=== PATIENT | female | born 1985 | race Hispanic/Latino ===

== ENCOUNTER 2023-10-21 19:03 | Emergency (ER) | payer SELFPAY ==
--- OUTSIDE RECORDS SUMMARY | 2023-10-21 19:11 | XMS REPORT | Continuity of Care Document ---
Author Name Unknown Address [address] [facility]. [address] [place] [address] [facility] thconnect Address [address] [facility] [address] [place] [address] Care Team Providers Care Apartment Property Manager Name Role Phone PCP, PATIENT DOES NOT HAVE A Primary Care Physic fang Unavailable Nurse, Robles Enriquezrach Rgv Cprit Obgyn Attending Clini rachelle Unavailable Iesha Pitts Attending Clinician + IESHA ROSALES Attending Clinician Unavail able RUBA DUBOSE Attending Clinician Unavailable Osiris Wilkins DO Attending Clinician [phone] Ruba Dubose MD Attending Clinician [phone] Doctor Unassigned, Ross Attending Clinician U Ashely Tobar CNM Attending Clinician +1- ASHELY OBANDO Attending Clinician Unavailliliam Amin, [facility] Attending Clinician Unava PERCY Viveros Attending Clinician UnavailPercy Mcpherson MD Attending Clinician [phone] Alena Buckley MD Attending Clinician [phone] DAVID DRISCOLL Attending Clinician Unavailable Charly, Wolfgangadriana Attending Clinician UnavailSuly Germain MD Attending Clinician +00 SULY SANCHEZ Attending Clinician Unavailable SONJA SALINAS Attending Clinician SONJA Christopher Attending Clinician Mae Martinez MD, Lilli Cuevas Attending Clinician + LILLI MARTINEZ Attending Clinician Peng ailable 1, [facility] Attending Clinician Unavailab donte Lalit Muñoz DO Attending Clinician [phone] Teri Felipe Attending Clinician UnavailJEN Trevino Attending Clinician Unavaildharmesh Gasca MD, Jen Norris Attending Clinician + [phone] Provider, Ang-Rmch[facility] Temp Attending Clinician Odilia karthik Lab, Ang-Rmchp Attending Clinician Unavailable Eddie Perera MD Attending Clinician [phone] EDDIE PERERA Attending Clinician Unavailable Deysi Lopez Attending Clinician + [phone] DEYSI GARCIA Attending Clinician Unavailab donte 1, [facility] Attending Clinician Unavailab donte Wilkins RN, Xiomara Darden Attending Clinician UnavailJorge Castro Attending Clinician [phone] JORGE REYEZ Attending Clinician Unavailable Chitra Brothers Attending Clinician [phone] CHITRA PETERS Attending Clinician UnavailDoyle Gates DO Attending Clinician [phone] Juan Francisco Sanz MD Attending Clinician [phone] RUBA DUBOSE Admitting Clinician Unavailable PERCY NATHAN Admitting Clinician UnavailPercy Mcpherson MD Admitting Clinician + [phone] SONJA SALINAS Admitting Clinician JEN Graza Admitting Clinician UnavailJORGE Johansen Admitting Clinician Unavailable CHITRA PETERS Admitting Clinician Abhishek briones Payers Payer Name Policy Type Policy Number Effective Date Expirati on Date Source [facility] [id number] 2023 00:00:00 [facility] [id number] 2023 00:00:00 2024 00:00:00 Problems Condition Name Condition Details Condition Category Status Onset Date Resolution Date Last Treatment Date Treating Clinician Comments Source Need for HPV vaccinatio n Need for HPV vaccinatio n Disease Active 07-06 00:00: 00 [facility] (spontaneo us vaginal delivery) (spontaneo us vaginal delivery) Disease Active 09-13 00:00: 00 [facility] Single live Single live Disease Active 09-13 00:00: 00 [facility] Elevated blood pressure reading without diagnosis of hypertensi on Elevated blood pressure reading without diagnosis of hypertensi on Disease Active 09-11 00:00: 00 [facility] Gestationa l hypertensi on Gestationa l hypertensi on Disease Active 09-11 00:00: 00 [facility] 38 weeks gestation of 38 weeks gestation of Disease Active 09-11 00:00: 00 [facility] Elevated blood pressure affecting in third trimester, antepartum Elevated blood pressure affecting in third trimester, antepartum Disease Active 09-11 00:00: 00 [facility] Decreased movements in third trimester Decreased movements in third trimester Disease Active 09-11 00:00: 00 [facility] Morbid obesity with BMI of 40.0-44.9, adult Morbid obesity with BMI of 40.0-44.9, adult Disease Active 09-11 00:00: 00 [facility] Status post tubal ligation Status post tubal ligation Disease Active 08-13 00:00: 00 [facility] UTI in UTI in Disease Active 07-04 00:00: 00 Overview: Formattin g of this note might be different from the original. Pending chepe [facility] Pain of round ligament during Pain of round ligament during Disease Active 4-19 00:00: 00 [facility] Anemia of mother in , antepartum Anemia of mother in , antepartum Disease Active 2023-0 4-06 00:00: 00 [facility] Heartburn during Heartburn during Disease Active 4-05 00:00: 00 [facility] Multiparit y Multiparit y Disease Active 2-08 00:00: 00 [facility] AMA (advanced maternal age) multigravi da 35+ AMA (advanced maternal age) multigravi da 35+ Disease Active 2021-03 2-13 00:00: 00 [facility] headache in third trimester headache in third trimester Disease Active 2021-03 2-13 00:00: 00 [facility] Nausea and vomiting in Nausea and vomiting in Disease Active 2021-03 2 00:00: 00 [facility] Supervisio n of high-risk of elderly multigravi da Supervisio n of high-risk of elderly multigravi da Disease Active 2021-03 2 00:00: 00 [facility] Other general counseling and advice for contracept tesfaye management Other general counseling and advice for contracept tesfyae management Disease Active 3- 00:00: 00 [facility] Maternal varicella, non-immune Maternal varicella, non-immune Disease Active 11-03 00:00: 00 Overview: Formattin g of this note might be different from the original. Address in [facility] Unspecifie d hemorrhage in early , antepartum Unspecifie d hemorrhage in early , antepartum Disease Active 10-30 00:00: 00 [facility] Obesity (BMI 30-39.9) Obesity (BMI 30-39.9) Disease Active 10-30 00:00: 00 [facility] Supervisio n of high risk , antepartum , first trimester Supervisio n of high risk , antepartum , first trimester Disease Active 10-30 00:00: 00 [facility] Multiparit y Multiparit y Disease Active 10-30 00:00: 00 [facility] Missed period Missed period Disease Active 10-30 00:00: 00 [facility] Unspecifie d hemorrhage in early , antepartum Unspecifie d hemorrhage in early , antepartum Disease Active 10-30 00:00: 00 [facility] Obesity, unspecifie d Obesity, unspecifie d Disease Active 10-30 00:00: 00 [facility] Obesity affecting Obesity affecting Disease Active 04-11 00:00: 00 [facility] Anemia, Anemia, Disease Active 12-02 00:00: 00 Overview: Formattin g of this note might be different from the original. ICD10 Diagnosis Term Food Service Driver Utility [facility] Allergies, Adverse Reactions, Alerts Allergy Name Allergy Type Status Severity Reaction(s) Onset Date Inactive Date Treating Clinician Comments Source NO KNOWN ALLERGIE S Drug Class Active [facility] Social History Social Habit Start Date Stop Date Quantity Comments Source ASSERTION 2021-12-27 00:00:00 [facility] Gender identity [facility] Sexual orientation [facility] History of tobacco use Passive smoker [facility] Alcohol intake 2022-10-26 00:00:00 2022-10-26 00:00:00 Ex-drinker (finding) [facility] Exposure to SARS-CoV-2 (event) 2022-08-22 00:00:00 2022-09-01 09:32:00 Not sure [facility] Tobacco use and exposure 2022-01-28 00:00:00 2022-01-28 00:00:00 Smokeless tobacco non-user [facility] History of Social function 2022-01-28 00:00:00 2022-01-28 00:00:00 [facility] Alcohol Comment 2013-08-23 00:00:00 2013-08-23 00:00:00 ocassional [facility] Sex Assigned At 1985 00:00:00 1985 00:00:00 [facility] Smoking Status Start Date Stop Date Source Never smoked tobacco [facility] Medications Ordered Medication Name Filled Medication Name Start Date Stop Date Current Medication? Ordering Clinician Indication Dosage Frequency Signature (SIG) Comments Components Source ketorolac (TORADOL) injection 30 mg 04-09 05:00: 00 04-09 04:07 :00 No 30mg 30 mg, Slow IV Push, ONCE, 1 dose, On Thu04/08/23 at 2300, [facility] methylPREDN ISolone 4 mg tablets 04-08 00:00: 00 Yes [id number] Take by mouth SEE-INSTRU CTIONS. follow package directions [facility] cephALEXin (KEFLEX) 500 mg capsule 10-03 00:00: 00 10-14 04:59 :00 No [id number] 500mg Take 1 capsule by mouth 4 (four) times daily for 10 days. [facility] HYDROcodone -acetaminop hen 5-325 mg tablet 09-15 00:00: 00 09-23 04:59 :00 No [id number] 1{tbl} Take 1 tablet by mouth every 6 (six) hours as needed for Pain (scale 7-10) for up to 7 days. Indication s: acute pain [facility] phenylephri ne-cocoa butter (PREPARATIO N H) 0.25-88.44 % suppository 1 Suppository 09-14 01:00: 00 Yes 1{suppo sitory} 1 Suppositor y, Rectal, BID, First dose on 09/13/22 at 2000, Until Discontinu ed, Routine [facility] varicella virus vaccine live (VARIVAX) injection and diluent vial 09-13 16:17: 19 Yes 1{each} 0.5 mL (1 Each), Subcutaneo us, ONCE-PRIOR TO DISCHARGE, 1 dose, Starting on 09/13/22 at 1117, Until Discontinu ed, Routine, Give vaccine prior to discharge [facility] vitamin w/FA tablet 09-13 00:00: 00 Yes [id number] 1{tbl} Take 1 tablet by mouth in the morning. [facility] vitamin w/FA tablet 09-13 00:00: 00 Yes [id number] 1{tbl} Take 1 tablet by mouth in the morning. [facility] docusate 100 mg capsule 09-13 00:00: 00 10-24 00:00 :00 No [id number] 200mg Take 2 capsules by mouth once daily as needed for Constipati on. [facility] ferrous sulfate 325 mg (65 mg iron) tablet 09-13 00:00: 00 10-24 00:00 :00 No [id number] 325mg Take 1 tablet by mouth in the morning and 1 tablet in the evening. [facility] ibuprofen 600 mg tablet 09-13 00:00: 00 10-24 00:00 :00 No [id number] 600mg Take 1 tablet by mouth every 6 (six) hours as needed (Pain). Take with food or milk. [facility] naloxone (NARCAN) injection 0.2 mg 09-12 19:36: 00 Yes .2mg 0.2 mg, Intramuscu lar, Q3HPRN, 3 doses, Starting on Thu09/12/22 at 1436, Until Discontinu ed, Routine, Itching [facility] diphenhydrA MINE (BENADRYL) tablet 25 mg 09-12 19:36: 00 Yes 25mg 25 mg, Oral, Q4HPRN, Starting on Thu09/12/22 at 1436, Until Discontinu ed, Routine, Itching [facility] ketorolac (TORADOL) injection 30 mg 09-12 19:36: 00 09-17 04:59 :00 No 30mg 30 mg, Slow IV Push, Q6HPRN, 4 doses, Starting on Thu09/12/22 at 1436, Until Thu09/16/22 at 2359, Routine, Pain (scale 1-3) [facility] HYDROcodone -acetaminop hen (NORCO 5) 5-325 mg tablet 2 tablet 09-12 19:02: 32 Yes 2{tbl} 2 tablet, Oral, Q6HPRN, Starting on Thu09/12/22 at 1402, Until Discontinu ed, Routine, Pain (scale 7-10) [facility] HYDROcodone -acetaminop hen (NORCO 5) 5-325 mg tablet 1 tablet 09-12 19:02: 30 Yes 1{tbl} 1 tablet, Oral, Q6HPRN, Starting on Thu09/12/22 at 1402, Until Discontinu ed, Routine, Pain (scale 4-6) [facility] naloxone (NARCAN) injection 0.4 mg 09-12 17:53: 27 09-14 23:14 :19 No .4mg 0.4 mg, Slow IV Push, PRN - SEE INSTRUCTIO NS, Starting on Thu09/12/22 at 1253, Until Thu09/14/22 at 1814, Routine, Analgesia [facility] rho(D) immune globulin (RHOGAM) syringe 300 mcg 09-12 10:23: 39 Yes 300ug 300 mcg, Intramuscu lar, ONCE, For 1 dose, Conditiona l, Routine [facility] human papillomav vac,9-kierra(P F) (GARDASIL-9 ) syringe 0.5 mL 09-12 10:23: 36 Yes .5mL 0.5 mL, Intramuscu lar, ONCE-PRIOR TO DISCHARGE, 1 dose, Starting on Thu09/12/22 at 0523, Until Discontinu ed, Routine, Give vaccine prior to discharge [facility] HYDROcodone -acetaminop hen (NORCO 5) 5-325 mg tablet 1 tablet 09-12 10:23: 36 Yes 1{tbl} 1 tablet, Oral, Q6HPRN, Starting on Thu09/12/22 at 0523, Until Discontinu ed, Routine, Pain (scale 7-10) [facility] ibuprofen (IBU) tablet 600 mg 09-12 10:23: 36 Yes 600mg 600 mg, Oral, Q6HPRN, Starting on Thu09/12/22 at 0523, Until Discontinu ed, Routine, Pain (scale 4-6) [facility] acetaminoph en (TYLENOL) tablet 650 mg 09-12 10:23: 36 Yes 650mg 650 mg, Oral, Q6HPRN, Starting on Thu09/12/22 at 0523, Until Discontinu ed, Routine, Pain (scale 1-3) [facility] ondansetron (ZOFRAN (PF)) injection 4 mg 09-12 10:23: 36 Yes 4mg 4 mg, Slow IV Push, Q8HPRN, Starting on Thu09/12/22 at 0523, Until Discontinu ed, Routine, Nausea and Vomiting (N/V) [facility] simethicone (GAS RELIEF (SIMETHICON E)) chewable tablet 160 mg 09-12 10:23: 36 Yes 160mg 160 mg, Oral, PC+HSPRN, Starting on Thu09/12/22 at 522, Until Discontinu ed, Routine, Gas [facility] docusate (COLACE) capsule 200 mg 09-12 10:23: 36 Yes 200mg 200 mg, Oral, QDAILYPRN, Starting on Thu09/12/22 at 0523, Until Discontinu ed, Routine, Constipati on [facility] magnesium hydroxide (MILK OF MAGNESIA) 400 mg/5 mL suspension 30 mL 09-12 10:23: 36 Yes 30mL 30 mL, Oral, QDAILYPRN, Starting on Thu09/12/22 at 05, Until Discontinu ed, Routine, Constipati on [facility] benzocaine- menthol (DERMOPLAST ) 20-0.5 % topical spray 09-12 10:23: 35 Yes Topical, PRN, Starting on Thu09/12/22 at 0523, Until Discontinu ed, Routine, Perineum discomfort [facility] ibuprofen (IBU) tablet 600 mg 09-12 07:14: 02 Yes 600mg 600 mg, Oral, Q6HPRN, Starting on Thu09/12/22 at 0214, Until Discontinu ed, Routine, Pain (scale 1-3) [facility] oxytocin (PITOCIN) 30 units in NS 500 mL IV infusion 09-12 07:13: 56 Yes 600mL/h 600 mL/hr, IV Infusion, PRN, For post delivery uterine atony., Starting on Thu09/12/[address] at 600 mL/hr for 1 hr then 150 mL/hr for 1 hr.
[facility] oxytocin (PITOCIN) 30 units in NS 500 mL IV infusion 09-12 07:13: 56 Yes 300mL/h 300 mL/hr, IV Infusion, SEE-INSTRU CTIONS, Starting on Thu09/12/[address] at 300 mL/hr for 1 hr then 150 mL/hr for 1 hr. For post delivery uterotonic .
[facility] acetaminoph en (TYLENOL) tablet 1,000 mg 09-12 04:00: 00 09-12 03:24 :00 No 1000mg 1,000 mg, Oral, ONCE, 1 dose, On Thu09/11/22 at 2300, Routine [facility] acetaminoph en (TYLENOL) tablet 1,000 mg 09-11 19:45: 00 09-11 18:48 :00 No 1000mg 1,000 mg, Oral, ONCE NOW, 1 dose, On Thu09/11/22 at 1445, Routine [facility] proCHLORper azine (COMPAZINE) tablet 10 mg 09-11 19:30: 00 09-11 18:48 :00 No 10mg 10 mg, Oral, ONCE, 1 dose, On Thu09/11/22 at 1430, Routine [facility] oxytocin (PITOCIN) 30 units in NS 500 mL IV infusion 09-11 19:18: 22 Yes 2mU/min at 2-40 mL/hr, IV Infusion, TITRATE, Starting on Thu09/11/22 at 1418, Until Discontinu ed, [facility] lidocaine 1% (XYLOCAINE) 10 mg/mL (1 %) injection 30 mL 09-11 18:16: 37 Yes 30mL 30 mL, Infiltrati on, PRN - SEE INSTRUCTIO NS, Starting on Thu09/11/22 at 1316, Until Discontinu ed, Routine, Local anesthesia , For laceration repair only as a local anesthetic as indicated. [facility] lidocaine 1% (PF) (XYLOCAINE) injection 0.3 mL 09-11 18:16: 37 Yes .3mL 0.3 mL, Infiltrati on, PRN - SEE INSTRUCTIO NS, Starting on Yara 09/11/22 at 1316, Until Discontinu ed, Routine, Local anesthesia , For IV line placement only as a local anesthetic . [facility] lactated ringers IV infusion 500 mL 09-11 18:16: 37 Yes 500mL at 999 mL/hr, 500 mL, IV Infusion, PRN - SEE INSTRUCTIO NS, Starting on Yara 09/11/22 at 1316, Until Discontinu ed, Routine [facility] D5W-LR IV infusion 1,000 mL 09-11 18:16: 37 Yes 1000mL at 1-125 mL/hr, IV Infusion, TITRATE, Starting on Yara 09/11/22 at 1316, Until Discontinu ed, Routine [facility] sodium citrate-cit reggie acid (BICITRA) 500-334 mg/5 mL solution 30 mL 09-11 18:16: 37 09-12 18:16 :00 No 30mL 30 mL, Oral, PRE-PROCED URE ONCE, 1 dose, Starting on Yara 09/11/22 at 1316, Until Thu09/12/22 at 1316, Routine, Surgery/Pr ocedure [facility] ampicillin 500 mg capsule 07-04 00:00: 00 07-15 04:59 :00 No [id number] 500mg Take 1 capsule by mouth 4 (four) times daily for 10 days. [facility] ferrous sulfate 325 mg (65 mg iron) tablet 06-19 00:00: 00 09-13 00:00 :00 No [id number] 325mg Take 1 tablet by mouth in the morning and 1 tablet in the evening. [facility] ascorbic acid, vitamin C, 500 mg tablet 06-19 00:00: 00 09-13 00:00 :00 No [id number] 500mg Take 1 tablet by mouth in the morning and 1 tablet at noon and 1 tablet in the evening. [facility] acetaminoph en (TYLENOL) tablet 650 mg 04-08 05:15: 00 04-08 05:55 :00 No 650mg 650 mg, Oral, ONCE, 1 dose, On Thu04/07/22 at 2315, [facility] iopamidol (ISOVUE 370-500 mL) injection 80 mL 04-08 04:30: 00 04-08 04:30 :00 No [id number] 80mL 80 mL, Intravenou s, ONCE, 1 dose, On Thu04/07/22 at 2230, Routine [facility] lidocaine 5 % (700 mg/patch) patch 04-07 00:00: 00 09-13 00:00 :00 No [id number] Apply one patch to most painful area up to 12 hours a day as needed for pain. PHARMACIST : dispense one box [facility] No known medications 03-25 08:28: 24 No No known medication s [facility] metroNIDAZO LE 500 mg tablet 03-25 00:00: 00 04-02 05:59 :00 No [id number] 500mg Take 1 tablet by mouth in the morning and 1 tablet in the evening. Do all this for 7 days. [facility] No known medications 2021-03 09:36: 01 No No known medication s [facility] No known medications 2021-03 09:00: 02 No No known medication s [facility] No known medications 2021-03 10:37: 13 No No known medication s [facility] cetirizine HCl (ZYRTEC ORAL) 2021-03 10:37: 03 01-28 00:00 :00 No Take by mouth. [facility] methylpredn isolone sod succ (SOLU-MEDRO L) injection 125 mg 08-06 23:30: 00 08-06 22:29 :00 No 125mg 125 mg, IV Piggyback, ONCE, 1 dose, 08/06/20 at 1830, STAT [facility] ipratropium -albuteroL (DUONEB) 0.5 mg-3 mg(2.5 mg base)/3 mL nebulizer solution 3 mL 08-06 23:30: 00 08-06 22:30 :00 No 3mL 3 mL, Inhalation , ONCE, 1 dose, Thu08/06/20 at 1830, Routine [facility] predniSONE 20 mg tablet 08-06 00:00: 00 08-06 00:00 :00 No [id number] 40mg Take 2 tablets by mouth every morning for 5 days. [facility] benzonatate (TESSALON PERLES) capsule 100 mg 08-03 23:45: 00 08-03 23:03 :00 No 100mg 100 mg, Oral, ONCE, 1 dose, Thu08/03/20 at 1845, Routine [facility] dexamethaso ne (DECADRON PHOSPHATE) injection 10 mg 08-03 23:45: 00 08-03 23:05 :00 No 10mg 10 mg, Oral, ONCE, 1 dose, Thu08/03/20 at 1845, Routine [facility] albuterol (VENTOLIN) inhaler 2 Puff 08-03 23:45: 00 08-03 23:09 :00 No 2{puff} 2 Puff, Inhalation , ONCE, 1 dose, Thu08/03/20 at 1845, [facility]
Is this order for a patient with suspected or confirmed COVID-19 infection? Yes [facility] benzonatate 100 mg capsule 08-03 00:00: 00 01-28 00:00 :00 No [id number] 100mg Take 1 capsule by mouth 3 (three) times daily as needed for Cough. [facility] cetirizine HCl (ZYRTEC ORAL) 05-14 14:07: 06 Yes Take by mouth. [facility] cetirizine HCl (ZYRTEC ORAL) 05-14 08:07: 06 Yes Take by mouth. [facility] KCL (KLOR-CON M20) tablet 40 mEq 11-05 17:30: 00 11-05 16:29 :00 No 40meq 40 mEq, Oral, ONCE, 1 dose, 11/05/18 at 1230, [facility] naproxen sodium 550 mg tablet 11-05 00:00: 00 01-28 00:00 :00 No [id number] 550mg Take 1 tablet by mouth 2 (two) times daily with meals. [facility] multivitami n ( VITAMIN) tablet 10-30 00:00: 00 01-28 00:00 :00 No [id number] 1{tbl} Take 1 tablet by mouth daily. [facility] Immunizations Ordered Immunization Name Filled Immunization Name Date Status Comments Source HPV9 2022-11-28 00:00:00 Completed [facility] HPV9 2022-10-24 00:00:00 Completed [facility] HPV9 2022-10-24 00:00:00 Completed [facility] HPV9 2022-10-24 00:00:00 Completed [facility] HPV9 2022-10-24 00:00:00 Completed [facility] TDAP 2022-07-02 00:00:00 Completed [facility] TDAP 2022-07-02 00:00:00 Completed [facility] TDAP 2022-07-02 00:00:00 Completed [facility] TDAP 2022-07-02 00:00:00 Completed [facility] TDAP 2022-07-02 00:00:00 Completed [facility] TDAP 2022-07-02 00:00:00 Completed [facility] TDAP 2022-07-02 00:00:00 Completed [facility] TDAP 2022-07-02 00:00:00 Completed [facility] TDAP 2022-07-02 00:00:00 Completed [facility] TDAP 2022-07-02 00:00:00 Completed [facility] TDAP 2022-07-02 00:00:00 Completed [facility] TDAP 2022-07-02 00:00:00 Completed [facility] TDAP 2022-07-02 00:00:00 Completed [facility] TDAP 2022-07-02 00:00:00 Completed [facility] TDAP 2022-07-02 00:00:00 Completed [facility] TDAP 2022-07-02 00:00:00 Completed [facility] TDAP 2022-07-02 00:00:00 Completed [facility] TDAP 2022-07-02 00:00:00 Completed [facility] TDAP 2022-07-02 00:00:00 Completed [facility] TDAP 2022-07-02 00:00:00 Completed [facility] TDAP 2022-07-02 00:00:00 Completed [facility] TDAP 2022-07-02 00:00:00 Completed [facility] TDAP 2022-07-02 00:00:00 Completed [facility] TDAP 2022-07-02 00:00:00 Completed [facility] TDAP 2022-07-02 00:00:00 Completed [facility] Influenza Virus Vaccine Quad IM, Preserv and ABX Free 6 MO-64 YRS 2022-01-28 00:00:00 Completed [facility] Influenza Virus Vaccine Quad IM, Preserv and ABX Free 6 MO-64 YRS 2022-01-28 00:00:00 Completed [facility] Influenza Virus Vaccine Quad IM, Preserv and ABX Free 6 MO-64 YRS 2022-01-28 00:00:00 Completed [facility] Influenza Virus Vaccine Quad IM, Preserv and ABX Free 6 MO-64 YRS 2022-01-28 00:00:00 Completed [facility] Influenza Virus Vaccine Quad IM, Preserv and ABX Free 6 MO-64 YRS 2022-01-28 00:00:00 Completed [facility] Influenza Virus Vaccine Quad IM, Preserv and ABX Free 6 MO-64 YRS 2022-01-28 00:00:00 Completed [facility] Influenza Virus Vaccine Quad IM, Preserv and ABX Free 6 MO-64 YRS 2022-01-28 00:00:00 Completed [facility] Influenza Virus Vaccine Quad IM, Preserv and ABX Free 6 MO-64 YRS 2022-01-28 00:00:00 Completed [facility] Influenza Virus Vaccine Quad IM, Preserv and ABX Free 6 MO-64 YRS 2022-01-28 00:00:00 Completed [facility] Influenza Virus Vaccine Quad IM, Preserv and ABX Free 6 MO-64 YRS 2022-01-28 00:00:00 Completed [facility] Influenza Virus Vaccine Quad IM, Preserv and ABX Free 6 MO-64 YRS 2022-01-28 00:00:00 Completed [facility] Influenza Virus Vaccine Quad IM, Preserv and ABX Free 6 MO-64 YRS 2022-01-28 00:00:00 Completed [facility] Influenza Virus Vaccine Quad IM, Preserv and ABX Free 6 MO-64 YRS 2022-01-28 00:00:00 Completed [facility] Influenza Virus Vaccine Quad IM, Preserv and ABX Free 6 MO-64 YRS 2022-01-28 00:00:00 Completed [facility] Influenza Virus Vaccine Quad IM, Preserv and ABX Free 6 MO-64 YRS 2022-01-28 00:00:00 Completed [facility] Influenza Virus Vaccine Quad IM, Preserv and ABX Free 6 MO-64 YRS 2022-01-28 00:00:00 Completed [facility] Influenza Virus Vaccine Quad IM, Preserv and ABX Free 6 MO-64 YRS 2022-01-28 00:00:00 Completed [facility] Influenza Virus Vaccine Quad IM, Preserv and ABX Free 6 MO-64 YRS 2022-01-28 00:00:00 Completed [facility] Influenza Virus Vaccine Quad IM, Preserv and ABX Free 6 MO-64 YRS 2022-01-28 00:00:00 Completed [facility] Influenza Virus Vaccine Quad IM, Preserv and ABX Free 6 MO-64 YRS 2022-01-28 00:00:00 Completed [facility] Influenza Virus Vaccine Quad IM, Preserv and ABX Free 6 MO-64 YRS (FLUCELVAX) 2022-01-28 00:00:00 Completed [facility] Influenza Virus Vaccine Quad IM, Preserv and ABX Free 6 MO-64 YRS 2022-01-28 00:00:00 Completed [facility] Influenza Virus Vaccine Quad IM, Preserv and ABX Free 6 MO-64 YRS 2022-01-28 00:00:00 Completed [facility] Influenza Virus Vaccine Quad IM, Preserv and ABX Free 6 MO-64 YRS 2022-01-28 00:00:00 Completed [facility] Influenza Virus Vaccine Quad IM, Preserv and ABX Free 6 MO-64 YRS 2022-01-28 00:00:00 Completed [facility] Influenza Virus Vaccine Quad IM, Preserv and ABX Free 6 MO-64 YRS 2022-01-28 00:00:00 Completed [facility] Influenza Virus Vaccine Quad IM, Preserv and ABX Free 6 MO-64 YRS 2022-01-28 00:00:00 Completed [facility] Influenza Virus Vaccine Quad IM, Preserv and ABX Free 6 MO-64 YRS 2022-01-28 00:00:00 Completed [facility] Influenza Virus Vaccine Quad IM, Preserv and ABX Free 6 MO-64 YRS 2022-01-28 00:00:00 Completed [facility] Influenza Virus Vaccine Quad IM, Preserv and ABX Free 6 MO-64 YRS 2022-01-28 00:00:00 Completed [facility] Influenza Virus Vaccine Quad IM, Preserv and ABX Free 6 MO-64 YRS 2022-01-28 00:00:00 Completed [facility] Influenza Virus Vaccine Quad IM, Preserv and ABX Free 6 MO-64 YRS 2022-01-28 00:00:00 Completed [facility] Influenza Virus Vaccine Quad IM, Preserv and ABX Free 6 MO-64 YRS 2022-01-28 00:00:00 Completed [facility] Influenza Virus Vaccine Quad IM, Preserv and ABX Free 6 MO-64 YRS 2022-01-28 00:00:00 Completed [facility] Influenza Virus Vaccine Quad IM, Preserv and ABX Free 6 MO-64 YRS 2022-01-28 00:00:00 Completed [facility] Influenza Virus Vaccine Quad IM, Preserv and ABX Free 6 MO-64 YRS 2022-01-28 00:00:00 Completed [facility] Influenza Virus Vaccine Quad IM, Preserv and ABX Free 6 MO-64 YRS 2022-01-28 00:00:00 Completed [facility] Influenza Virus Vaccine Quad IM, Preserv and ABX Free 6 MO-64 YRS 2022-01-28 00:00:00 Completed [facility] Influenza Virus Vaccine Quad IM, Preserv and ABX Free 6 MO-64 YRS 2022-01-28 00:00:00 Completed [facility] Influenza Virus Vaccine Quad IM, Preserv and ABX Free 6 MO-64 YRS 2022-01-28 00:00:00 Completed [facility] Influenza Virus Vaccine Quad IM, Preserv and ABX Free 6 MO-64 YRS 2022-01-28 00:00:00 Completed [facility] Influenza Virus Vaccine Quad IM, Preserv and ABX Free 6 MO-64 YRS 2022-01-28 00:00:00 Completed [facility] Influenza Virus Vaccine Quad IM, Preserv and ABX Free 6 MO-64 YRS 2022-01-28 00:00:00 Completed [facility] Influenza Virus Vaccine Quad IM, Preserv and ABX Free 6 MO-64 YRS 2022-01-28 00:00:00 Completed [facility] Influenza Virus Vaccine Quad IM, Preserv and ABX Free 6 MO-64 YRS 2022-01-28 00:00:00 Completed [facility] Influenza Virus Vaccine Quad IM, Preserv and ABX Free 6 MO-64 YRS 2022-01-28 00:00:00 Completed [facility] Influenza Virus Vaccine Quad IM, Preserv and ABX Free 6 MO-64 YRS 2022-01-28 00:00:00 Completed [facility] Influenza Virus Vaccine Quad IM, Preserv and ABX Free 6 MO-64 YRS 2022-01-28 00:00:00 Completed [facility] Influenza Virus Vaccine Quad IM, Preserv and ABX Free 6 MO-64 YRS 2022-01-28 00:00:00 Completed [facility] Influenza Virus Vaccine Quad IM, Preserv and ABX Free 6 MO-64 YRS 2022-01-28 00:00:00 Completed [facility] Influenza Virus Vaccine Quad IM, Preserv and ABX Free 6 MO-64 YRS 2022-01-28 00:00:00 Completed [facility] Influenza Virus Vaccine Quad IM, Preserv and ABX Free 6 MO-64 YRS 2022-01-28 00:00:00 Completed [facility] Influenza Virus Vaccine Quad IM, Preserv and ABX Free 6 MO-64 YRS 2022-01-28 00:00:00 Completed [facility] Influenza Virus Vaccine Quad IM, Preserv and ABX Free 6 MO-64 YRS 2022-01-28 00:00:00 Completed [facility] Influenza Virus Vaccine Quad IM, Preserv and ABX Free 6 MO-64 YRS 2022-01-28 00:00:00 Completed [facility] Influenza Virus Vaccine Quad IM, Preserv and ABX Free 6 MO-64 YRS 2022-01-28 00:00:00 Completed [facility] Influenza Virus Vaccine Quad IM, Preserv and ABX Free 6 MO-64 YRS 2022-01-28 00:00:00 Completed [facility] Influenza Virus Vaccine Quad IM, Preserv and ABX Free 6 MO-64 YRS 2022-01-28 00:00:00 Completed [facility] Influenza Virus Vaccine Quad IM, Preserv and ABX Free 6 MO-64 YRS 2022-01-28 00:00:00 Completed [facility] Influenza Virus Vaccine Quad IM, Preserv and ABX Free 6 MO-64 YRS 2022-01-28 00:00:00 Completed [facility] Influenza Virus Vaccine Quad IM, Preserv and ABX Free 6 MO-64 YRS 2022-01-28 00:00:00 Completed [facility] Influenza Virus Vaccine Quad IM, Preserv and ABX Free 6 MO-64 YRS 2022-01-28 00:00:00 Completed [facility] Influenza Virus Vaccine Quad IM, Preserv and ABX Free 6 MO-64 YRS 2022-01-28 00:00:00 Completed [facility] Influenza Virus Vaccine Quad IM, Preserv and ABX Free 6 MO-64 YRS 2022-01-28 00:00:00 Completed [facility] Influenza Virus Vaccine Quad IM, Preserv and ABX Free 6 MO-64 YRS 2022-01-28 00:00:00 Completed [facility] Influenza Virus Vaccine Quad .5 mL IM 6+ MO 2020-05-14 00:00:00 Completed [facility] Influenza Virus Vaccine Quad .5 mL IM 6+ MO 2020-05-14 00:00:00 Completed [facility] Influenza Virus Vaccine Quad .5 mL IM 6+ MO 2020-05-14 00:00:00 Completed [facility] Influenza Virus Vaccine Quad .5 mL IM 6+ MO 2020-05-14 00:00:00 Completed [facility] Influenza Virus Vaccine Quad .5 mL IM 6+ MO 2020-05-14 00:00:00 Completed [facility] Influenza Virus Vaccine Quad .5 mL IM 6+ MO 2020-05-14 00:00:00 Completed [facility] Influenza Virus Vaccine Quad .5 mL IM 6+ MO 2020-05-14 00:00:00 Completed [facility] Influenza Virus Vaccine Quad .5 mL IM 6+ MO 2020-05-14 00:00:00 Completed [facility] Influenza Virus Vaccine Quad .5 mL IM 6+ MO 2020-05-14 00:00:00 Completed [facility] Influenza Virus Vaccine Quad .5 mL IM 6+ MO 2020-05-14 00:00:00 Completed [facility] Influenza Virus Vaccine Quad .5 mL IM 6+ MO 2020-05-14 00:00:00 Completed [facility] Influenza Virus Vaccine Quad .5 mL IM 6+ MO 2020-05-14 00:00:00 Completed [facility] Influenza Virus Vaccine Quad .5 mL IM 6+ MO 2020-05-14 00:00:00 Completed [facility] Influenza Virus Vaccine Quad .5 mL IM 6+ MO 2020-05-14 00:00:00 Completed [facility] Influenza Virus Vaccine Quad .5 mL IM 6+ MO 2020-05-14 00:00:00 Completed [facility] Influenza Virus Vaccine Quad .5 mL IM 6+ MO 2020-05-14 00:00:00 Completed [facility] Influenza Virus Vaccine Quad .5 mL IM 6+ MO 2020-05-14 00:00:00 Completed [facility] Influenza Virus Vaccine Quad .5 mL IM 6+ MO 2020-05-14 00:00:00 Completed [facility] Influenza Virus Vaccine Quad .5 mL IM 6+ MO 2020-05-14 00:00:00 Completed [facility] Influenza Virus Vaccine Quad .5 mL IM 6+ MO 2020-05-14 00:00:00 Completed [facility] Influenza Virus Vaccine Quad .5 mL IM 6+ MO 2020-05-14 00:00:00 Completed [facility] Influenza Virus Vaccine Quad .5 mL IM 6+ MO 2020-05-14 00:00:00 Completed [facility] Influenza Virus Vaccine Quad .5 mL IM 6+ MO 2020-05-14 00:00:00 Completed [facility] Influenza Virus Vaccine Quad .5 mL IM 6+ MO (FLUZONE/FLULAVAL/F LUARIX) 2020-05-14 00:00:00 Completed [facility] Influenza Virus Vaccine Quad .5 mL IM 6+ MO 2020-05-14 00:00:00 Completed [facility] Influenza Virus Vaccine Quad .5 mL IM 6+ MO 2020-05-14 00:00:00 Completed [facility] Influenza Virus Vaccine Quad .5 mL IM 6+ MO 2020-05-14 00:00:00 Completed [facility] Influenza Virus Vaccine Quad .5 mL IM 6+ MO 2020-05-14 00:00:00 Completed [facility] Influenza Virus Vaccine Quad .5 mL IM 6+ MO 2020-05-14 00:00:00 Completed [facility] Influenza Virus Vaccine Quad .5 mL IM 6+ MO 2020-05-14 00:00:00 Completed [facility] Influenza Virus Vaccine Quad .5 mL IM 6+ MO 2020-05-14 00:00:00 Completed [facility] Influenza Virus Vaccine Quad .5 mL IM 6+ MO 2020-05-14 00:00:00 Completed [facility] Influenza Virus Vaccine Quad .5 mL IM 6+ MO 2020-05-14 00:00:00 Completed [facility] Influenza Virus Vaccine Quad .5 mL IM 6+ MO 2020-05-14 00:00:00 Completed [facility] Influenza Virus Vaccine Quad .5 mL IM 6+ MO 2020-05-14 00:00:00 Completed [facility] Influenza Virus Vaccine Quad .5 mL IM 6+ MO 2020-05-14 00:00:00 Completed [facility] Influenza Virus Vaccine Quad .5 mL IM 6+ MO 2020-05-14 00:00:00 Completed [facility] Influenza Virus Vaccine Quad .5 mL IM 6+ MO 2020-05-14 00:00:00 Completed [facility] Influenza Virus Vaccine Quad .5 mL IM 6+ MO 2020-05-14 00:00:00 Completed [facility] Influenza Virus Vaccine Quad .5 mL IM 6+ MO 2020-05-14 00:00:00 Completed [facility] Influenza Virus Vaccine Quad .5 mL IM 6+ MO 2020-05-14 00:00:00 Completed [facility] Influenza Virus Vaccine Quad .5 mL IM 6+ MO 2020-05-14 00:00:00 Completed [facility] Influenza Virus Vaccine Quad .5 mL IM 6+ MO 2020-05-14 00:00:00 Completed [facility] Influenza Virus Vaccine Quad .5 mL IM 6+ MO 2020-05-14 00:00:00 Completed [facility] Influenza Virus Vaccine Quad .5 mL IM 6+ MO 2020-05-14 00:00:00 Completed [facility] Influenza Virus Vaccine Quad .5 mL IM 6+ MO 2020-05-14 00:00:00 Completed [facility] Influenza Virus Vaccine Quad .5 mL IM 6+ MO 2020-05-14 00:00:00 Completed [facility] Influenza Virus Vaccine Quad .5 mL IM 6+ MO 2020-05-14 00:00:00 Completed [facility] Influenza Virus Vaccine Quad .5 mL IM 6+ MO 2020-05-14 00:00:00 Completed [facility] Influenza Virus Vaccine Quad .5 mL IM 6+ MO 2020-05-14 00:00:00 Completed [facility] Influenza Virus Vaccine Quad .5 mL IM 6+ MO 2020-05-14 00:00:00 Completed [facility] Influenza Virus Vaccine Quad .5 mL IM 6+ MO 2020-05-14 00:00:00 Completed [facility] Influenza Virus Vaccine Quad .5 mL IM 6+ MO 2020-05-14 00:00:00 Completed [facility] Influenza Virus Vaccine Quad .5 mL IM 6+ MO 2020-05-14 00:00:00 Completed [facility] Influenza Virus Vaccine Quad .5 mL IM 6+ MO 2020-05-14 00:00:00 Completed [facility] Influenza Virus Vaccine Quad .5 mL IM 6+ MO 2020-05-14 00:00:00 Completed [facility] Influenza Virus Vaccine Quad .5 mL IM 6+ MO 2020-05-14 00:00:00 Completed [facility] Influenza Virus Vaccine Quad .5 mL IM 6+ MO 2020-05-14 00:00:00 Completed [facility] Influenza Virus Vaccine Quad .5 mL IM 6+ MO 2020-05-14 00:00:00 Completed [facility] Influenza Virus Vaccine Quad .5 mL IM 6+ MO 2020-05-14 00:00:00 Completed [facility] Influenza Virus Vaccine Quad .5 mL IM 6+ MO 2020-05-14 00:00:00 Completed [facility] Influenza Virus Vaccine Quad .5 mL IM 6+ MO 2020-05-14 00:00:00 Completed [facility] Influenza Virus Vaccine Quad .5 mL IM 6+ MO 2020-05-14 00:00:00 Completed [facility] Influenza Virus Vaccine Quad .5 mL IM 6+ MO 2020-05-14 00:00:00 Completed [facility] Influenza Virus Vaccine Quad .5 mL IM 6+ MO 2020-05-14 00:00:00 Completed [facility] Influenza Virus Vaccine Quad .5 mL IM 6+ MO 2020-05-14 00:00:00 Completed [facility] Influenza Virus Vaccine Quad .5 mL IM 6+ MO 2020-05-14 00:00:00 Completed [facility] Influenza Virus Vaccine Quad .5 mL IM 6+ MO 2020-05-14 00:00:00 Completed [facility] Influenza Virus Vaccine Quad .5 mL IM 6+ MO 2020-05-14 00:00:00 Completed [facility] Influenza Virus Vaccine Quad .5 mL IM 6+ MO 2020-05-14 00:00:00 Completed [facility] Influenza Virus Vaccine Quad .5 mL IM 6+ MO 2020-05-14 00:00:00 Completed [facility] Influenza Virus Vaccine Quad .5 mL IM 6+ MO 2020-05-14 00:00:00 Completed [facility] Influenza Virus Vaccine 2011-12-13 00:00:00 Completed [facility] Influenza Virus Vaccine 2011-12-13 00:00:00 Completed [facility] Influenza Virus Vaccine 2011-12-13 00:00:00 Completed [facility] Influenza Virus Vaccine 2011-12-13 00:00:00 Completed [facility] Influenza Virus Vaccine 2011-12-13 00:00:00 Completed [facility] Influenza Virus Vaccine 2011-12-13 00:00:00 Completed [facility] Influenza Virus Vaccine 2011-12-13 00:00:00 Completed [facility] Influenza Virus Vaccine 2011-12-13 00:00:00 Completed [facility] Influenza Virus Vaccine 2011-12-13 00:00:00 Completed [facility] Influenza Virus Vaccine 2011-12-13 00:00:00 Completed [facility] Influenza Virus Vaccine 2011-12-13 00:00:00 Completed [facility] Influenza Virus Vaccine 2011-12-13 00:00:00 Completed [facility] Influenza Virus Vaccine 2011-12-13 00:00:00 Completed [facility] Influenza Virus Vaccine 2011-12-13 00:00:00 Completed [facility] Influenza Virus Vaccine 2011-12-13 00:00:00 Completed [facility] Influenza Virus Vaccine 2011-12-13 00:00:00 Completed [facility] Influenza Virus Vaccine 2011-12-13 00:00:00 Completed [facility] Influenza Virus Vaccine 2011-12-13 00:00:00 Completed [facility] Influenza Virus Vaccine 2011-12-13 00:00:00 Completed [facility] Influenza Virus Vaccine 2011-12-13 00:00:00 Completed [facility] Influenza Virus Vaccine 2011-12-13 00:00:00 Completed [facility] Influenza Virus Vaccine 2011-12-13 00:00:00 Completed [facility] Influenza Virus Vaccine 2011-12-13 00:00:00 Completed [facility] Influenza Virus Vaccine 2011-12-13 00:00:00 Completed [facility] Influenza Virus Vaccine 2011-12-13 00:00:00 Completed [facility] Influenza Virus Vaccine 2011-12-13 00:00:00 Completed [facility] Influenza Virus Vaccine 2011-12-13 00:00:00 Completed [facility] Influenza Virus Vaccine 2011-12-13 00:00:00 Completed [facility] Influenza Virus Vaccine 2011-12-13 00:00:00 Completed [facility] Influenza Virus Vaccine 2011-12-13 00:00:00 Completed [facility] Influenza Virus Vaccine 2011-12-13 00:00:00 Completed [facility] Influenza Virus Vaccine 2011-12-13 00:00:00 Completed [facility] Influenza Virus Vaccine 2011-12-13 00:00:00 Completed [facility] Influenza Virus Vaccine 2011-12-13 00:00:00 Completed [facility] Influenza Virus Vaccine 2011-12-13 00:00:00 Completed [facility] Influenza Virus Vaccine 2011-12-13 00:00:00 Completed [facility] Influenza Virus Vaccine 2011-12-13 00:00:00 Completed [facility] Influenza Virus Vaccine 2011-12-13 00:00:00 Completed [facility] Influenza Virus Vaccine 2011-12-13 00:00:00 Completed [facility] Influenza Virus Vaccine 2011-12-13 00:00:00 Completed [facility] Influenza Virus Vaccine 2011-12-13 00:00:00 Completed [facility] Influenza Virus Vaccine 2011-12-13 00:00:00 Completed [facility] Influenza Virus Vaccine 2011-12-13 00:00:00 Completed [facility] Influenza Virus Vaccine 2011-12-13 00:00:00 Completed [facility] Influenza Virus Vaccine 2011-12-13 00:00:00 Completed [facility] Influenza Virus Vaccine 2011-12-13 00:00:00 Completed [facility] Influenza Virus Vaccine 2011-12-13 00:00:00 Completed [facility] Influenza Virus Vaccine 2011-12-13 00:00:00 Completed [facility] Influenza Virus Vaccine 2011-12-13 00:00:00 Completed [facility] Influenza Virus Vaccine 2011-12-13 00:00:00 Completed [facility] Influenza Virus Vaccine 2011-12-13 00:00:00 Completed [facility] Influenza Virus Vaccine 2011-12-13 00:00:00 Completed [facility] Influenza Virus Vaccine 2011-12-13 00:00:00 Completed [facility] Influenza Virus Vaccine 2011-12-13 00:00:00 Completed [facility] Influenza Virus Vaccine 2011-12-13 00:00:00 Completed [facility] Influenza Virus Vaccine 2011-12-13 00:00:00 Completed [facility] Influenza Virus Vaccine 2011-12-13 00:00:00 Completed [facility] Influenza Virus Vaccine 2011-12-13 00:00:00 Completed [facility] Influenza Virus Vaccine 2011-12-13 00:00:00 Completed [facility] Influenza Virus Vaccine 2011-12-13 00:00:00 Completed [facility] Influenza Virus Vaccine 2011-12-13 00:00:00 Completed [facility] Influenza Virus Vaccine 2011-12-13 00:00:00 Completed [facility] Influenza Virus Vaccine 2011-12-13 00:00:00 Completed [facility] Influenza Virus Vaccine 2011-12-13 00:00:00 Completed [facility] Influenza Virus Vaccine 2011-12-13 00:00:00 Completed [facility] Influenza Virus Vaccine 2011-12-13 00:00:00 Completed [facility] Influenza Virus Vaccine 2011-12-13 00:00:00 Completed [facility] Influenza Virus Vaccine 2011-12-13 00:00:00 Completed [facility] Influenza Virus Vaccine 2011-12-13 00:00:00 Completed [facility] Influenza Virus Vaccine 2011-12-13 00:00:00 Completed [facility] Influenza Virus Vaccine 2011-12-13 00:00:00 Completed [facility] Influenza Virus Vaccine 2011-12-13 00:00:00 Completed [facility] Influenza Virus Vaccine 2011-12-13 00:00:00 Completed [facility] Influenza Virus Vaccine 2011-12-13 00:00:00 Completed [facility] TDAP 2011-09-09 00:00:00 Completed [facility] TDAP 2011-09-09 00:00:00 Completed [facility] TDAP 2011-09-09 00:00:00 Completed [facility] TDAP 2011-09-09 00:00:00 Completed [facility] TDAP 2011-09-09 00:00:00 Completed [facility] TDAP 2011-09-09 00:00:00 Completed [facility] TDAP 2011-09-09 00:00:00 Completed [facility] TDAP 2011-09-09 00:00:00 Completed [facility] TDAP 2011-09-09 00:00:00 Completed [facility] TDAP 2011-09-09 00:00:00 Completed [facility] TDAP 2011-09-09 00:00:00 Completed [facility] TDAP 2011-09-09 00:00:00 Completed [facility] TDAP 2011-09-09 00:00:00 Completed [facility] TDAP 2011-09-09 00:00:00 Completed [facility] TDAP 2011-09-09 00:00:00 Completed [facility] TDAP 2011-09-09 00:00:00 Completed [facility] TDAP 2011-09-09 00:00:00 Completed [facility] TDAP 2011-09-09 00:00:00 Completed [facility] TDAP 2011-09-09 00:00:00 Completed [facility] TDAP 2011-09-09 00:00:00 Completed [facility] TDAP 2011-09-09 00:00:00 Completed [facility] TDAP 2011-09-09 00:00:00 Completed [facility] TDAP 2011-09-09 00:00:00 Completed [facility] TDAP 2011-09-09 00:00:00 Completed [facility] TDAP 2011-09-09 00:00:00 Completed [facility] TDAP 2011-09-09 00:00:00 Completed [facility] TDAP 2011-09-09 00:00:00 Completed [facility] TDAP 2011-09-09 00:00:00 Completed [facility] TDAP 2011-09-09 00:00:00 Completed [facility] TDAP 2011-09-09 00:00:00 Completed [facility] TDAP 2011-09-09 00:00:00 Completed [facility] TDAP 2011-09-09 00:00:00 Completed [facility] TDAP 2011-09-09 00:00:00 Completed [facility] TDAP 2011-09-09 00:00:00 Completed [facility] TDAP 2011-09-09 00:00:00 Completed [facility] TDAP 2011-09-09 00:00:00 Completed [facility] TDAP 2011-09-09 00:00:00 Completed [facility] TDAP 2011-09-09 00:00:00 Completed [facility] TDAP 2011-09-09 00:00:00 Completed [facility] TDAP 2011-09-09 00:00:00 Completed [facility] TDAP 2011-09-09 00:00:00 Completed [facility] TDAP 2011-09-09 00:00:00 Completed [facility] TDAP 2011-09-09 00:00:00 Completed [facility] TDAP 2011-09-09 00:00:00 Completed [facility] TDAP 2011-09-09 00:00:00 Completed [facility] TDAP 2011-09-09 00:00:00 Completed [facility] TDAP 2011-09-09 00:00:00 Completed [facility] TDAP 2011-09-09 00:00:00 Completed [facility] TDAP 2011-09-09 00:00:00 Completed [facility] TDAP 2011-09-09 00:00:00 Completed [facility] TDAP 2011-09-09 00:00:00 Completed [facility] TDAP 2011-09-09 00:00:00 Completed [facility] TDAP 2011-09-09 00:00:00 Completed [facility] TDAP 2011-09-09 00:00:00 Completed [facility] TDAP 2011-09-09 00:00:00 Completed [facility] TDAP 2011-09-09 00:00:00 Completed [facility] TDAP 2011-09-09 00:00:00 Completed [facility] TDAP 2011-09-09 00:00:00 Completed [facility] TDAP 2011-09-09 00:00:00 Completed [facility] Tdap 2011-09-09 00:00:00 Completed [facility] TDAP 2011-09-09 00:00:00 Completed [facility] TDAP 2011-09-09 00:00:00 Completed [facility] TDAP 2011-09-09 00:00:00 Completed [facility] TDAP 2011-09-09 00:00:00 Completed [facility] TDAP 2011-09-09 00:00:00 Completed [facility] TDAP 2011-09-09 00:00:00 Completed [facility] TDAP 2011-09-09 00:00:00 Completed [facility] TDAP 2011-09-09 00:00:00 Completed [facility] TDAP 2011-09-09 00:00:00 Completed [facility] TDAP 2011-09-09 00:00:00 Completed [facility] TDAP 2011-09-09 00:00:00 Completed [facility] TDAP 2011-09-09 00:00:00 Completed [facility] TDAP 2011-09-09 00:00:00 Completed [facility] TDAP 2011-09-09 00:00:00 Completed [facility] Rubella 2011-06-04 00:00:00 Completed [facility] Rubella 2011-06-04 00:00:00 Completed [facility] Rubella 2011-06-04 00:00:00 Completed [facility] Rubella 2011-06-04 00:00:00 Completed [facility] Rubella 2011-06-04 00:00:00 Completed [facility] Rubella 2011-06-04 00:00:00 Completed [facility] Rubella 2011-06-04 00:00:00 Completed [facility] Rubella 2011-06-04 00:00:00 Completed [facility] Rubella 2011-06-04 00:00:00 Completed [facility] Rubella 2011-06-04 00:00:00 Completed [facility] Rubella 2011-06-04 00:00:00 Completed [facility] Rubella 2011-06-04 00:00:00 Completed [facility] Rubella 2011-06-04 00:00:00 Completed [facility] Rubella 2011-06-04 00:00:00 Completed [facility] Rubella 2011-06-04 00:00:00 Completed [facility] Rubella 2011-06-04 00:00:00 Completed [facility] Rubella 2011-06-04 00:00:00 Completed [facility] Rubella 2011-06-04 00:00:00 Completed [facility] Rubella 2011-06-04 00:00:00 Completed [facility] Rubella 2011-06-04 00:00:00 Completed [facility] Rubella 2011-06-04 00:00:00 Completed [facility] Rubella 2011-06-04 00:00:00 Completed [facility] Rubella 2011-06-04 00:00:00 Completed [facility] Rubella 2011-06-04 00:00:00 Completed [facility] Rubella 2011-06-04 00:00:00 Completed [facility] Rubella 2011-06-04 00:00:00 Completed [facility] Rubella 2011-06-04 00:00:00 Completed [facility] Rubella 2011-06-04 00:00:00 Completed [facility] Rubella 2011-06-04 00:00:00 Completed [facility] Rubella 2011-06-04 00:00:00 Completed [facility] Rubella 2011-06-04 00:00:00 Completed [facility] Rubella 2011-06-04 00:00:00 Completed [facility] Rubella 2011-06-04 00:00:00 Completed [facility] Rubella 2011-06-04 00:00:00 Completed [facility] Rubella 2011-06-04 00:00:00 Completed [facility] Rubella 2011-06-04 00:00:00 Completed [facility] Rubella 2011-06-04 00:00:00 Completed [facility] Rubella 2011-06-04 00:00:00 Completed [facility] Rubella 2011-06-04 00:00:00 Completed [facility] Rubella 2011-06-04 00:00:00 Completed [facility] Rubella 2011-06-04 00:00:00 Completed [facility] Rubella 2011-06-04 00:00:00 Completed [facility] Rubella 2011-06-04 00:00:00 Completed [facility] Rubella 2011-06-04 00:00:00 Completed [facility] Rubella 2011-06-04 00:00:00 Completed [facility] Rubella 2011-06-04 00:00:00 Completed [facility] Rubella 2011-06-04 00:00:00 Completed [facility] Rubella 2011-06-04 00:00:00 Completed [facility] Rubella 2011-06-04 00:00:00 Completed [facility] Rubella 2011-06-04 00:00:00 Completed [facility] Rubella 2011-06-04 00:00:00 Completed [facility] Rubella 2011-06-04 00:00:00 Completed [facility] Rubella 2011-06-04 00:00:00 Completed [facility] Rubella 2011-06-04 00:00:00 Completed [facility] Rubella 2011-06-04 00:00:00 Completed [facility] Rubella 2011-06-04 00:00:00 Completed [facility] Rubella 2011-06-04 00:00:00 Completed [facility] Rubella 2011-06-04 00:00:00 Completed [facility] Rubella 2011-06-04 00:00:00 Completed [facility] Rubella 2011-06-04 00:00:00 Completed [facility] Rubella 2011-06-04 00:00:00 Completed [facility] Rubella 2011-06-04 00:00:00 Completed [facility] Rubella 2011-06-04 00:00:00 Completed [facility] Rubella 2011-06-04 00:00:00 Completed [facility] Rubella 2011-06-04 00:00:00 Completed [facility] Rubella 2011-06-04 00:00:00 Completed [facility] Rubella 2011-06-04 00:00:00 Completed [facility] Rubella 2011-06-04 00:00:00 Completed [facility] Rubella 2011-06-04 00:00:00 Completed [facility] Rubella 2011-06-04 00:00:00 Completed [facility] Rubella 2011-06-04 00:00:00 Completed [facility] Rubella 2011-06-04 00:00:00 Completed [facility] Rubella 2011-06-04 00:00:00 Completed [facility] Rubella 2011-06-04 00:00:00 Completed [facility] Influenza Virus Vaccine 2007-01-14 00:00:00 Completed [facility] Influenza Virus Vaccine 2007-01-14 00:00:00 Completed [facility] Influenza Virus Vaccine 2007-01-14 00:00:00 Completed [facility] Influenza Virus Vaccine 2007-01-14 00:00:00 Completed [facility] Influenza Virus Vaccine 2007-01-14 00:00:00 Completed [facility] Influenza Virus Vaccine 2007-01-14 00:00:00 Completed [facility] Influenza Virus Vaccine 2007-01-14 00:00:00 Completed [facility] Influenza Virus Vaccine 2007-01-14 00:00:00 Completed [facility] Influenza Virus Vaccine 2007-01-14 00:00:00 Completed [facility] Influenza Virus Vaccine 2007-01-14 00:00:00 Completed [facility] Influenza Virus Vaccine 2007-01-14 00:00:00 Completed [facility] Influenza Virus Vaccine 2007-01-14 00:00:00 Completed [facility] Influenza Virus Vaccine 2007-01-14 00:00:00 Completed [facility] Influenza Virus Vaccine 2007-01-14 00:00:00 Completed [facility] Influenza Virus Vaccine 2007-01-14 00:00:00 Completed [facility] Influenza Virus Vaccine 2007-01-14 00:00:00 Completed [facility] Influenza Virus Vaccine 2007-01-14 00:00:00 Completed [facility] Influenza Virus Vaccine 2007-01-14 00:00:00 Completed [facility] Influenza Virus Vaccine 2007-01-14 00:00:00 Completed [facility] Influenza Virus Vaccine 2007-01-14 00:00:00 Completed [facility] Influenza Virus Vaccine 2007-01-14 00:00:00 Completed [facility] Influenza Virus Vaccine 2007-01-14 00:00:00 Completed [facility] Influenza Virus Vaccine 2007-01-14 00:00:00 Completed [facility] Influenza Virus Vaccine 2007-01-14 00:00:00 Completed [facility] Influenza Virus Vaccine 2007-01-14 00:00:00 Completed [facility] Influenza Virus Vaccine 2007-01-14 00:00:00 Completed [facility] Influenza Virus Vaccine 2007-01-14 00:00:00 Completed [facility] Influenza Virus Vaccine 2007-01-14 00:00:00 Completed [facility] Influenza Virus Vaccine 2007-01-14 00:00:00 Completed [facility] Influenza Virus Vaccine 2007-01-14 00:00:00 Completed [facility] Influenza Virus Vaccine 2007-01-14 00:00:00 Completed [facility] Influenza Virus Vaccine 2007-01-14 00:00:00 Completed [facility] Influenza Virus Vaccine 2007-01-14 00:00:00 Completed [facility] Influenza Virus Vaccine 2007-01-14 00:00:00 Completed [facility] Influenza Virus Vaccine 2007-01-14 00:00:00 Completed [facility] Influenza Virus Vaccine 2007-01-14 00:00:00 Completed [facility] Influenza Virus Vaccine 2007-01-14 00:00:00 Completed [facility] Influenza Virus Vaccine 2007-01-14 00:00:00 Completed [facility] Influenza Virus Vaccine 2007-01-14 00:00:00 Completed [facility] Influenza Virus Vaccine 2007-01-14 00:00:00 Completed [facility] Influenza Virus Vaccine 2007-01-14 00:00:00 Completed [facility] Influenza Virus Vaccine 2007-01-14 00:00:00 Completed [facility] Influenza Virus Vaccine 2007-01-14 00:00:00 Completed [facility] Influenza Virus Vaccine 2007-01-14 00:00:00 Completed [facility] Influenza Virus Vaccine 2007-01-14 00:00:00 Completed [facility] Influenza Virus Vaccine 2007-01-14 00:00:00 Completed [facility] Influenza Virus Vaccine 2007-01-14 00:00:00 Completed [facility] Influenza Virus Vaccine 2007-01-14 00:00:00 Completed [facility] Influenza Virus Vaccine 2007-01-14 00:00:00 Completed [facility] Influenza Virus Vaccine 2007-01-14 00:00:00 Completed [facility] Influenza Virus Vaccine 2007-01-14 00:00:00 Completed [facility] Influenza Virus Vaccine 2007-01-14 00:00:00 Completed [facility] Influenza Virus Vaccine 2007-01-14 00:00:00 Completed [facility] Influenza Virus Vaccine 2007-01-14 00:00:00 Completed [facility] Influenza Virus Vaccine 2007-01-14 00:00:00 Completed [facility] Influenza Virus Vaccine 2007-01-14 00:00:00 Completed [facility] Influenza Virus Vaccine 2007-01-14 00:00:00 Completed [facility] Influenza Virus Vaccine 2007-01-14 00:00:00 Completed [facility] Influenza Virus Vaccine 2007-01-14 00:00:00 Completed [facility] Influenza Virus Vaccine 2007-01-14 00:00:00 Completed [facility] Influenza Virus Vaccine 2007-01-14 00:00:00 Completed [facility] Influenza Virus Vaccine 2007-01-14 00:00:00 Completed [facility] Influenza Virus Vaccine 2007-01-14 00:00:00 Completed [facility] Influenza Virus Vaccine 2007-01-14 00:00:00 Completed [facility] Influenza Virus Vaccine 2007-01-14 00:00:00 Completed [facility] Influenza Virus Vaccine 2007-01-14 00:00:00 Completed [facility] Influenza Virus Vaccine 2007-01-14 00:00:00 Completed [facility] Influenza Virus Vaccine 2007-01-14 00:00:00 Completed [facility] Influenza Virus Vaccine 2007-01-14 00:00:00 Completed [facility] Influenza Virus Vaccine 2007-01-14 00:00:00 Completed [facility] Influenza Virus Vaccine 2007-01-14 00:00:00 Completed [facility] Influenza Virus Vaccine 2007-01-14 00:00:00 Completed [facility] Influenza Virus Vaccine 2007-01-14 00:00:00 Completed [facility] Influenza Virus Vaccine 2007-01-14 00:00:00 Completed [facility] Influenza Virus Vaccine Unknown Completed [facility] Influenza Virus Vaccine Unknown Completed [facility] Rubella Unknown Completed [facility] TDAP Unknown Completed [facility] Influenza Virus Vaccine Quad .5 mL IM 6+ MO (FLUZONE/FLULAVAL/F LUARIX) Unknown Completed [facility] Influenza Virus Vaccine Quad IM, Preserv and ABX Free 6 MO-64 YRS (FLUCELVAX) Unknown Completed [facility] TDAP Unknown Completed [facility] HPV9 Unknown Completed [facility] HPV9 Unknown Completed [facility] Influenza Virus Vaccine Unknown Completed [facility] Influenza Virus Vaccine Unknown Completed [facility] Rubella Unknown Completed [facility] TDAP Unknown Completed [facility] Influenza Virus Vaccine Quad .5 mL IM 6+ MO (FLUZONE/FLULAVAL/F LUARIX) Unknown Completed [facility] Influenza Virus Vaccine Quad IM, Preserv and ABX Free 6 MO-64 YRS (FLUCELVAX) Unknown Completed [facility] TDAP Unknown Completed [facility] HPV9 Unknown Completed [facility] HPV9 Unknown Completed [facility] Influenza Virus Vaccine Unknown Completed [facility] Influenza Virus Vaccine Unknown Completed [facility] Rubella Unknown Completed [facility] TDAP Unknown Completed [facility] Influenza Virus Vaccine Quad .5 mL IM 6+ MO (FLUZONE/FLULAVAL/F LUARIX) Unknown Completed [facility] Influenza Virus Vaccine Quad IM, Preserv and ABX Free 6 MO-64 YRS (FLUCELVAX) Unknown Completed [facility] TDAP Unknown Completed [facility] HPV9 Unknown Completed [facility] HPV9 Unknown Completed [facility] HPV9 Unknown Completed [facility] Vital Signs Vital Name Observation Time Observation Value Comments S ource Body temperature 2023-07-07 14:01:00 36.83 Heather [facility] Systolic blood pressure 2023-04-09 05:00:00 124 mm[Hg] [facility] Diastolic blood pressure 2023-04-09 05:00:00 80 mm[Hg] [facility] Heart rate 2023-04-09 05:00:00 75 /min [facility] Respiratory rate 2023-04-09 05:00:00 20 /min [facility] Oxygen saturation in Arterial blood by Pulse oximetry 2023-04-09 05:00:00 99 /min [facility] Body temperature 2023-04-09 03:01:00 37 Heather [facility] Body weight 2023-04-09 03:01:00 95.255 kg [facility] BMI 2023-04-09 03:01:00 41.01 kg/m2 [facility] Body temperature 2022-11-28 14:01:00 36.67 Heather [facility] Systolic blood pressure 2022-10-24 14:33:00 126 mm[Hg] [facility] Diastolic blood pressure 2022-10-24 14:33:00 68 mm[Hg] [facility] Heart rate 2022-10-24 14:33:00 52 /min [facility] Body temperature 2022-10-24 14:33:00 36.06 Heather [facility] Respiratory rate 2022-10-24 14:33:00 16 /min [facility] Body height 2022-10-24 14:33:00 152.4 cm [facility] Body weight 2022-10-24 14:33:00 94.439 kg [facility] BMI 2022-10-24 14:33:00 40.66 kg/m2 [facility] Systolic blood pressure 2022-10-08 13:19:00 116 mm[Hg] [facility] Diastolic blood pressure 2022-10-08 13:19:00 84 mm[Hg] [facility] Heart rate 2022-10-08 13:19:00 56 /min [facility] Body temperature 2022-10-08 13:19:00 36.33 Heather [facility] Respiratory rate 2022-10-08 13:19:00 17 /min [facility] Body height 2022-10-08 13:19:00 152.4 cm [facility] Body weight 2022-10-08 13:19:00 91.672 kg [facility] BMI 2022-10-08 13:19:00 39.47 kg/m2 [facility] Systolic blood pressure 2022-10-03 15:06:00 128 mm[Hg] [facility] Diastolic blood pressure 2022-10-03 15:06:00 86 mm[Hg] [facility] Heart rate 2022-10-03 15:06:00 63 /min [facility] Body temperature 2022-10-03 15:06:00 36.56 Heather [facility] Respiratory rate 2022-10-03 15:06:00 18 /min [facility] Body height 2022-10-03 15:06:00 152.4 cm [facility] Body weight 2022-10-03 15:06:00 91.286 kg [facility] BMI 2022-10-03 15:06:00 39.30 kg/m2 [facility] Systolic blood pressure 2022-09-30 21:11:00 129 mm[Hg] [facility] Diastolic blood pressure 2022-09-30 21:11:00 73 mm[Hg] [facility] Heart rate 2022-09-30 21:11:00 65 /min [facility] Body temperature 2022-09-30 21:11:00 36.67 Heather [facility] Respiratory rate 2022-09-30 21:11:00 18 /min [facility] Body height 2022-09-30 21:11:00 152.4 cm [facility] Body weight 2022-09-30 21:11:00 91.825 kg [facility] BMI 2022-09-30 21:11:00 39.54 kg/m2 [facility] Systolic blood pressure 2022-09-19 15:31:00 130 mm[Hg] [facility] Diastolic blood pressure 2022-09-19 15:31:00 80 mm[Hg] [facility] Body temperature 2022-09-19 15:29:00 36.78 Heather [facility] Respiratory rate 2022-09-19 15:29:00 18 /min [facility] Body weight 2022-09-19 15:29:00 95.754 kg [facility] BMI 2022-09-19 15:29:00 39.91 kg/m2 [facility] Systolic blood pressure 2022-09-14 21:32:00 142 mm[Hg] [facility] Diastolic blood pressure 2022-09-14 21:32:00 90 mm[Hg] [facility] Heart rate 2022-09-14 21:32:00 87 /min [facility] Body temperature 2022-09-14 21:32:00 37 Heather [facility] Respiratory rate 2022-09-14 21:32:00 17 /min [facility] Oxygen saturation in Arterial blood by Pulse oximetry 2022-09-14 21:32:00 100 /min [facility] Body height 2022-09-11 18:50:00 154.9 cm [facility] Body weight 2022-09-11 18:50:00 105.688 kg [facility] BMI 2022-09-11 18:50:00 44.05 kg/m2 [facility] Systolic blood pressure 2022-09-12 13:29:00 123 mm[Hg] [facility] Diastolic blood pressure 2022-09-12 13:29:00 77 mm[Hg] [facility] Heart rate 2022-09-12 13:29:00 85 /min [facility] Body temperature 2022-09-12 13:29:00 36.94 Heather [facility] Respiratory rate 2022-09-12 13:29:00 16 /min [facility] Oxygen saturation in Arterial blood by Pulse oximetry 2022-09-12 13:29:00 99 /min [facility] Body height 2022-09-11 18:50:00 154.9 cm [facility] Body weight 2022-09-11 18:50:00 105.688 kg [facility] BMI 2022-09-11 18:50:00 44.05 kg/m2 [facility] Systolic blood pressure 2022-09-11 13:30:00 142 mm[Hg] manual [facility] Diastolic blood pressure 2022-09-11 13:30:00 88 mm[Hg] manual [facility] Heart rate 2022-09-11 13:00:00 69 /min [facility] Body temperature 2022-09-11 13:00:00 36.56 Heather [facility] Respiratory rate 2022-09-11 13:00:00 20 /min [facility] Body height 2022-09-11 13:00:00 154.9 cm [facility] Body weight 2022-09-11 13:00:00 105.235 kg [facility] BMI 2022-09-11 13:00:00 43.84 kg/m2 [facility] Systolic blood pressure 2022-09-03 12:50:00 130 mm[Hg] [facility] Diastolic blood pressure 2022-09-03 12:50:00 72 mm[Hg] [facility] Heart rate 2022-09-03 12:50:00 75 /min [facility] Body temperature 2022-09-03 12:50:00 36.61 Heather [facility] Respiratory rate 2022-09-03 12:50:00 17 /min [facility] Body height 2022-09-03 12:50:00 154.9 cm [facility] Body weight 2022-09-03 12:50:00 104.373 kg [facility] BMI 2022-09-03 12:50:00 43.48 kg/m2 [facility] Systolic blood pressure 2022-08-27 13:37:00 131 mm[Hg] [facility] Diastolic blood pressure 2022-08-27 13:37:00 71 mm[Hg] [facility] Heart rate 2022-08-27 13:37:00 78 /min [facility] Body temperature 2022-08-27 13:37:00 36.56 Heather [facility] Respiratory rate 2022-08-27 13:37:00 18 /min [facility] Body height 2022-08-27 13:37:00 154.9 cm [facility] Body weight 2022-08-27 13:37:00 102.144 kg [facility] BMI 2022-08-27 13:37:00 42.55 kg/m2 [facility] Systolic blood pressure 2022-08-20 14:11:00 124 mm[Hg] manual [facility] Diastolic blood pressure 2022-08-20 14:11:00 68 mm[Hg] manual [facility] Heart rate 2022-08-20 13:43:00 80 /min [facility] Body temperature 2022-08-20 13:43:00 36.56 Heather [facility] Respiratory rate 2022-08-20 13:43:00 18 /min [facility] Body height 2022-08-20 13:43:00 154.9 cm [facility] Body weight 2022-08-20 13:43:00 101.804 kg [facility] BMI 2022-08-20 13:43:00 42.41 kg/m2 [facility] Systolic blood pressure 2022-08-13 20:10:00 133 mm[Hg] [facility] Diastolic blood pressure 2022-08-13 20:10:00 78 mm[Hg] [facility] Heart rate 2022-08-13 20:10:00 81 [facility] 2022-08-13 20:09:00 36.67 Heather [facility] Respiratory rate 2022-08-13 20:09:00 20 /min [facility] Body height 2022-08-13 20:09:00 [facility] 2022-08-13 20:09:00 100.755 kg [facility] BMI 2022-08-13 20:09:00 41.97 kg/m2 [facility] Systolic blood pressure 2022-07-30 19:04:00 131 mm[Hg] [facility] Diastolic blood pressure 2022-07-30 19:04:00 77 mm[Hg] [facility] Heart rate 2022-07-30 19:04:00 81 /min [facility] [facility] Body temperature 2022-07-30 19:04:00 36.78 Heather [facility] Respiratory rate 2022-07-30 19:04:00 18 /min [facility] Body height 2022-07-30 19:04:00 154.9 cm [facility] 2022-07-30 19:04:00 100.358 kg Univ [facility] BMI 2022-07-30 19:04:00 41.80 kg/m2 [facility] Systolic blood pressure 2022-07-23 20:52:00 111 mm[Hg] [facility] Diastolic blood pressure 2022-07-23 20:52:00 65 mm[Hg] [facility] Heart rate 2022-07-23 20:52:00 77 /min [facility] Body [facility] 2022-07-23 20:52:00 36.94 Heather [facility] Respiratory rate 2022-07-23 20:52:00 18 /min [facility] Body height 2022-07-23 20:52:00 154.9 cm [facility] Body weight 2022-07-23 20:52:00 99.139 kg [facility] BMI 2022-07-23 20:52:00 41.30 kg/m2 [facility] Systolic blood pressure 2022-07-16 19:41:00 127 mm[Hg] [facility] Diastolic blood pressure 2022-07-16 19:41:00 72 mm[Hg] [facility] Heart rate 2022-07-16 19:41:00 87 /min Unive [facility] Body temperature 2022-07-16 19:41:00 36.22 Heather [facility] Respiratory rate 2022-07-16 19:41:00 18 /min [facility] Body height 2022-07-16 19:41:00 154.9 cm [facility] weight 2022-07-16 19:41:00 99.156 kg [facility] BMI 2022-07-16 19:41:00 41.30 kg/m2 [facility] Systolic blood pressure 2022-07-02 18:57:00 95 mm[Hg] [facility] Diastolic blood pressure 2022-07-02 18:57:00 64 mm[Hg] [facility] Heart rate 2022-07-02 18:57:00 80 /min Unive [facility] Body temperature 2022-07-02 18:57:00 36.17 Heather [facility] Respiratory rate 2022-07-02 18:57:00 18 /min [facility] Body height 2022-07-02 18:57:00 154.9 cm [facility] Body weight 2022-07-02 18:57:00 97.705 kg [facility] BMI 2022-07-02 18:57:00 40.70 kg/m2 [facility] Systolic blood pressure 2022-06-29 00:15:00 130 mm[Hg] [facility] Diastolic blood pressure 2022-06-29 00:15:00 66 mm[Hg] [facility] Heart rate 2022-06-29 00:15:00 79 /min Unive [facility] Body temperature 2022-06-29 00:15:00 37.17 Heather [facility] Body height 2022-06-29 00:15:00 154.9 cm Univ [facility] Body weight 2022-06-29 00:15:00 97.297 kg [facility] BMI 2022-06-29 00:15:00 40.53 kg/m2 [facility] Oxygen saturation in Arterial blood by Pulse oximetry 2022-06-29 00:15:00 97 /min [facility] Respiratory rate 2022-06-28 23:55:00 16 /min [facility] Systolic blood pressure 2022-06-18 17:50:00 115 mm[Hg] [facility] Diastolic blood pressure 2022-06-18 17:50:00 54 mm[Hg] [facility] Heart rate 2022-06-18 17:50:00 77 /min Unive [facility] Body temperature 2022-06-18 17:50:00 36.5 Heather [facility] Respiratory rate 2022-06-18 17:50:00 17 /min [facility] Body height 2022-06-18 17:50:00 154.9 cm [facility] Body weight 2022-06-18 17:50:00 96.843 kg [facility] BMI 2022-06-18 17:50:00 40.34 kg/m2 [facility] Systolic blood pressure 2022-05-21 20:21:00 122 mm[Hg] [facility] Diastolic blood pressure 2022-05-21 20:21:00 66 mm[Hg] [facility] Heart rate 2022-05-21 20:21:00 88 /min Unive [facility] Body temperature 2022-05-21 20:21:00 36.72 Heather [facility] Respiratory rate 2022-05-21 20:21:00 18 /min [facility] Body height 2022-05-21 20:21:00 154.9 cm Univ [facility] Body weight 2022-05-21 20:21:00 95.573 kg Univ [facility] BMI 2022-05-21 20:21:00 39.81 kg/m2 [facility] Systolic blood pressure 2022-04-23 22:06:00 118 mm[Hg] [facility] Diastolic blood pressure 2022-04-23 22:06:00 69 mm[Hg] [facility] Heart rate 2022-04-23 22:06:00 75 /min Unive [facility] Body temperature 2022-04-23 22:06:00 36.06 Heather [facility] Respiratory rate 2022-04-23 22:06:00 18 /min [facility] Body height 2022-04-23 22:06:00 154.9 cm [facility] Body weight 2022-04-23 22:06:00 91.672 kg [facility] BMI 2022-04-23 22:06:00 38.19 kg/m2 [facility] Systolic blood pressure 2022-04-08 05:55:00 120 mm[Hg] [facility] Diastolic blood pressure 2022-04-08 05:55:00 86 mm[Hg] [facility] Heart rate 2022-04-08 05:55:00 74 /min Unive [facility] Respiratory rate 2022-04-08 05:55:00 18 /min [facility] Oxygen saturation in Arterial blood by Pulse oximetry 2022-04-08 05:55:00 100 /min [facility] Body temperature 2022-04-08 02:14:00 37.22 Heather [facility] Body height 2022-04-08 02:14:00 154.9 cm [facility] Body weight 2022-04-08 02:14:00 92.579 kg [facility] BMI 2022-04-08 02:14:00 38.56 kg/m2 [facility] Systolic blood pressure 2022-03-25 14:21:00 105 mm[Hg] [facility] Diastolic blood pressure 2022-03-25 14:21:00 71 mm[Hg] [facility] Heart rate 2022-03-25 14:21:00 72 /min Unive [facility] Body temperature 2022-03-25 14:21:00 36.5 Heather [facility] Respiratory rate 2022-03-25 14:21:00 18 /min [facility] Body height 2022-03-25 14:21:00 154.9 cm [facility] Body weight 2022-03-25 14:21:00 91.797 kg [facility] BMI 2022-03-25 14:21:00 38.24 kg/m2 [facility] Systolic blood pressure 2022-02-25 14:37:00 125 mm[Hg] [facility] Diastolic blood pressure 2022-02-25 14:37:00 63 mm[Hg] [facility] Heart rate 2022-02-25 14:37:00 64 /min Unive [facility] Body temperature 2022-02-25 14:37:00 36.39 Heather [facility] Respiratory rate 2022-02-25 14:37:00 18 /min [facility] Body height 2022-02-25 14:37:00 154.9 cm [facility] Body weight 2022-02-25 14:37:00 91.4 kg Univ [facility] BMI 2022-02-25 14:37:00 38.07 kg/m2 [facility] Systolic blood pressure 2022-01-28 16:15:00 122 mm[Hg] [facility] Diastolic blood pressure 2022-01-28 16:15:00 69 mm[Hg] [facility] Heart rate 2022-01-28 16:15:00 66 /[facility] Body temperature 2022-01-28 16:15:00 36.39 Heather [facility] Respiratory rate 2022-01-28 16:15:00 18 /min [facility] Body height 2022-01-28 16:15:00 154.9 cm [facility] Body weight 2022-01-28 16:15:00 90.266 kg [facility] BMI 2022-01-28 16:15:00 37.60 kg/m2 [facility] Systolic blood pressure 2020-08-07 00:00:00 114 mm[Hg] [facility] Diastolic blood pressure 2020-08-07 00:00:00 69 mm[Hg] [facility] Heart rate 2020-08-07 00:00:00 63 /min [facility] Respiratory rate 2020-08-07 00:00:00 21 /min [facility] Oxygen saturation in Arterial blood by Pulse oximetry 2020-08-07 00:00:00 94 /min [facility] Body temperature 2020-08-06 22:00:00 37.72 Hetaher [facility] Body weight 2020-08-06 22:00:00 79.379 kg [facility] BMI 2020-08-06 22:00:00 33.07 kg/m2 [facility] Systolic blood pressure 2020-08-03 23:07:00 122 mm[Hg] [facility] Diastolic blood pressure 2020-08-03 23:07:00 70 mm[Hg] [facility] Heart rate 2020-08-03 23:07:00 77 /min [facility] Respiratory rate 2020-08-03 23:07:00 16 /min [facility] Oxygen saturation in Arterial blood by Pulse oximetry 2020-08-03 23:07:00 99 /min [facility] Body temperature 2020-08-03 21:43:00 36.78 Heather [facility] Body weight 2020-08-03 21:43:00 79.379 kg [facility] BMI 2020-08-03 21:43:00 33.07 kg/m2 [facility] Systolic blood pressure 2020-05-14 13:57:00 106 mm[Hg] [facility] Diastolic blood pressure 2020-05-14 13:57:00 68 mm[Hg] [facility] Heart rate 2020-05-14 13:57:00 65 /min [facility] Body temperature 2020-05-14 13:57:00 36.61 Heather [facility] Respiratory rate 2020-05-14 13:57:00 16 /min [facility] Body height 2020-05-14 13:57:00 154.9 cm [facility] Body weight 2020-05-14 13:57:00 80.088 kg [facility] BMI 2020-05-14 13:57:00 33.36 kg/m2 [facility] Systolic blood pressure 2018-11-05 16:01:00 113 mm[Hg] [facility] Diastolic blood pressure 2018-11-05 16:01:00 72 mm[Hg] [facility] Heart rate 2018-11-05 16:01:00 47 /min [facility] Respiratory rate 2018-11-05 16:01:00 14 /min [facility] Oxygen saturation in Arterial blood by Pulse oximetry 2018-11-05 16:01:00 100 /min [facility] Body temperature 2018-11-05 14:02:00 36.83 [facility] Body weight 2018-11-05 14:02:00 86.183 kg [facility] BMI 2018-11-05 14:02:00 35.90 kg/m2 [facility] Procedures Procedure Date / Time Performed Performing Clinician Source GARDASIL 9 (HPV 9V) VACCINE 2023-07-07 14:01:30 Iesha Rosales [facility] LIPASE 2023-04-09 03:15:00 [facility] TROPONIN I 2023-04-09 03:15:00 [facility] COMP. METABOLIC PANEL ([id number]) 2023-04-09 03:15:00 Ruba Dubose [facility] CBC WITH DIFF 2023-04-09 03:15:00 Ruba Dubose [facility] D-DIMER 2023-04-09 03:15:00 Ruba Dubose [facility] N-TERMINAL PRO-BNP 2023-04-09 03:15:00 Ruba Dubose [facility] CONSENT/REFUSAL FOR DIAGNOSIS AND TREATMENT 2023-04-09 02:51:28 Doctor Unassigned, Ross [facility] GARDASIL 9 (HPV 9V) VACCINE 2022-11-28 14:01:03 Iesha Rosales [facility] CBC WITH DIFF 2022-10-24 15:19:00 Ashely Obando [facility] GARDASIL 9 (HPV 9V) VACCINE 2022-10-24 14:46:33 Iesha Rosales [facility] CBC WITH DIFF 2022-09-13 09:29:00 [facility] 2022-09-13 09:29:00 Jenusaitis, [facility] TUBAL LIGATION 2022-09-12 18:42:00 Alena Buckley [facility] VENOUS CORD GAS 2022-09-12 07:33:00 Emily Cox [facility] VENOUS CORD GAS 2022-09-12 07:33:00 Stone, [facility] SGOT (ASPARTATE AMINO TRANSFER) 2022-09-11 18:29:00 Stone, [facility] CREATININE 2022-09-11 18:29:00 Stone, [facility] ALANINE AMINO TRANSFERASE(SGPT 2022-09-11 18:29:00 Stone, [facility] LACTATE DEHYDROGENASE 2022-09-11 18:29:00 Stone, ai [facility] URIC ACID 2022-09-11 18:29:00 Stone, [facility] CBC WITH DIFF 2022-09-11 18:29:00 Stone, [facility] URINALYSIS 2022-09-11 18:29:00 Stone, [facility] HEPATITIS B SURFACE ANTIGEN 2022-09-11 18:29:00 Stone, [facility] HB ABO GROUPING 2022-09-11 18:29:00 Stone, [facility] RHO (D) IMMUNE GLOBULIN 2022-09-11 18:29:00 JenusaChavez yeager [facility] PROTEIN CREAT RATIO URINE RANDOM 2022-09-11 18:29:00 Stone, [facility] SYPHILIS IGG/IGM 2022-09-11 18:29:00 Stone, [facility] SGOT (ASPARTATE AMINO TRANSFER) 2022-09-11 18:29:00 Stone, [facility] CREATININE 2022-09-11 18:29:00 Stone, [facility] ALANINE AMINO TRANSFERASE(SGPT 2022-09-11 18:29:00 Stone, [facility] LACTATE DEHYDROGENASE 2022-09-11 18:29:00 Stone, ai [facility] URIC ACID 2022-09-11 18:29:00 Stone, [facility] CBC WITH DIFF 2022-09-11 18:29:00 Stone, [facility] URINALYSIS 2022-09-11 18:29:00 Stone, [facility] HEPATITIS B SURFACE ANTIGEN 2022-09-11 18:29:00 Stone, Emily [facility] HB ABO GROUPING 2022-09-11 18:29:00 Emily Cox [facility] RHO (D) IMMUNE GLOBULIN 2022-09-11 18:29:00 Chavez Castorena [facility] PROTEIN CREAT RATIO URINE RANDOM 2022-09-11 18:29:00 Emily Cox [facility] SYPHILIS IGG/IGM 2022-09-11 18:29:00 [facility] NON-STRESS TEST 2022-09-11 14:00:40 Maria T Obando [facility] POCT URINALYSIS 2022-09-11 00:00:00 Ashely Obando [facility] POCT URINALYSIS 2022-09-03 00:00:00 Ashely Obando [facility] POCT URINALYSIS 2022-08-27 13:38:00 Ashely Obando [facility] POCT URINALYSIS 2022-08-20 13:46:00 Ashely Obando [facility] POCT URINALYSIS 2022-08-13 20:10:00 Ashely Obando [facility] POCT URINALYSIS 2022-07-30 19:05:00 Ashely Obando [facility] POCT URINALYSIS 2022-07-23 20:53:00 Ashely Obando [facility] POCT URINALYSIS 2022-07-16 19:42:00 Ashely Obando [facility] TDAP VACCINE, >11 YRS, IM 2022-07-02 19:11:47 Iesha Rosales [facility] POCT URINALYSIS 2022-07-02 18:59:00 Ashely Obando [facility] ADC CLC OR LCC ONLY - WET PREP 2022-06-29 01:26:00 Sonja Salinas [facility] ASSIGNMENT OF BENEFITS 2022-06-28 23:47:47 Docto r Unassigned, Ross [facility] STERILIZATION CONSENT FORM 2022-06-18 05:01:00 Doctor Unassigned, Ross [facility] POCT URINALYSIS 2022-06-18 00:00:00 Ashely Obando [facility] POCT URINALYSIS 2022-05-21 20:21:00 Ashely Obando [facility] POCT URINALYSIS 2022-04-23 22:10:00 Ashely Obando [facility] POCT URINALYSIS 2022-04-23 22:09:00 Ashely Obando [facility] MEDICATION CORRESPONDENCE 2022-04-10 06:01:00 Do ctor Unassigned, Ross [facility] EKG-12 LEAD 2022-04-08 05:16:34 Jen Gasca [facility] CT CHEST PULMONARY ANGIOGRAM 2022-04-08 03:42:00 Jen Gasca [facility] XR CHEST 1 VW 2022-04-08 03:08:00 [facility]22-04-08 03:00:00 Jen Gasca [facility] TROPONIN I 2022-04-08 03:00:00 Jen Gasca [facility] COMP. METABOLIC PANEL ([id number]) 2022-04-08 03:00:00 Jen Gasca [facility] CBC WITH DIFF 2022-04-08 03:00:00 Jen Gasca [facility] PROTHROMBIN TIME / INR 2022-04-08 03:00:00 Daniel Gasca [facility] ACTIVATED PARTIAL THRMPLAS MARIA TERESA 2022-04-08 03:00:00 Jen Gasca [facility] N-TERMINAL PRO-BNP 2022-04-08 03:00:00 Jen Gasca [facility] NOTICE OF PRIVACY PRACTICES 2022-04-08 01:59:26 Doctor Unassigned, Ross [facility] CONSENT/REFUSAL FOR DIAGNOSIS AND TREATMENT 2022-04-08 01:59:07 Doctor Unassigned, Ross [facility] POCT URINALYSIS 2022-03-25 14:23:00 Ashely Obando [facility] MISCELLANEOUS SENDOUT TEST 2022-03-25 06:01:00 Doctor Unassigned, Ross [facility] MISCELLANEOUS SENDOUT TEST 2022-03-14 06:01:00 Doctor Unassigned, Ross [facility] POCT URINALYSIS 2022-02-25 00:00:00 Ashely Obando [facility] FLU VACC (), 6 MO-64 YRS, .5ML, IM, QUAD (FLUCELVAX) 2022-01-28 16:28:25 Ashely Obando [facility] ASSIGNMENT OF BENEFITS 2022-01-28 15:28:37 Docto r Unassigned, Ross [facility] POCT TEST 2022-01-28 00:00:00 Renée Obando [facility] POCT URINALYSIS W/O SPECIFIC GRAVITY 2022-01-28 00:00:00 Ashely Obando [facility] XR CHEST 1 VW 2020-08-06 22:39:47 [facility] D-DIMER 2020-08-06 22:36:00 Jorge Reyez [facility] TROPONIN I 2020-08-06 22:21:00 Jorge Reyez [facility] BASIC METABOLIC PANEL (NA, K, CL, CO2, GLUCOSE, BUN, CREATININE, CA) 2020-08-06 22:21:00 Jorge Reyez [facility] CBC WITH DIFF 2020-08-06 22:21:00 [facility] URINALYSIS 2020-08-06 22:21:00 Jorge Reyez [facility] N-TERMINAL PRO-BNP 2020-08-06 22:21:00 Jorge Reyez [facility] CONSENT/REFUSAL FOR DIAGNOSIS AND TREATMENT 2020-08-06 21:50:56 Doctor Unassigned, Ross [facility] COVID-19 (ID NOW RAPID TESTING) 2020-08-03 23:15:00 Chitra Peters [facility] POCT TEST 2020-08-03 23:03:00 Devendra Peters [facility] XR CHEST 1 VW 2020-08-03 22:47:56 Chitra Peters [facility] NOTICE OF PRIVACY PRACTICES 2020-08-03 21:28:58 Doctor Unassigned, Ross [facility] CONSENT/REFUSAL FOR DIAGNOSIS AND TREATMENT 2020-08-03 21:28:35 Doctor Unassigned, Ross [facility] THYROID STIMULATING HORMONE 2020-05-14 14:45:00 Iesha Rosales [facility] GC & CHLAMYDIA AMPLIFIED ASSAY 2020-05-14 14:45:00 Iesha Rosales [facility] FLU VACC ([id number]), 6+ MONTHS, IM, QUAD 2020-05-14 14:17:24 Iesha Rosales [facility] ASSIGNMENT OF BENEFITS 2020-05-14 13:43:29 Docto r Unassigned, Ross [facility] ACTIVATED PARTIAL THRMPLAS MARIA TERESA 2018-11-05 14:57:00 Juan Francisco Sanz [facility] LIPASE 2018-11-05 14:57:00 Juan Francisco Sanz [facility] TROPONIN I 2018-11-05 14:57:00 Juan Francisco Sanz [facility] COMP. METABOLIC PANEL ([id number]) 2018-11-05 14:57:00 Juan Francisco Sanz [facility] CBC WITH DIFFERENTIAL 2018-11-05 14:57:00 Ernesto Sanz [facility] PROTHROMBIN TIME / INR 2018-11-05 14:57:00 Enzo Sanz [facility] XR CHEST 1 VW 2018-11-05 14:53:57 Juan Francisco [facility]z [facility] EKG-12 LEAD 2018-11-05 14:20:42 Juan Francisco Sanz [facility] NOTICE OF PRIVACY PRACTICES 2018-11-05 13:48:22 Doctor Unassigned, Ross [facility] CONSENT/REFUSAL FOR DIAGNOSIS AND TREATMENT 2018-11-05 13:47:47 Doctor Unassigned, Ross [facility] Encounters Start Date/Time End Date/Time Encounter Type Admission Type Attending [facility] Care Department Encounter ID Source 2023-07-07 09:00:00 2023-07-07 09:15:00 Nurse Visit Nurse, Robles Flores Cprit Iesha Cesar [facility] [employer] [facility] MAT[facility]NAL & CHILD [facility] [id number] 350.1.13.10 4.2.7.2.686 [id number] [facility] 2023-07-07 09:00:00 2023-07-07 09:08:48 Outpatient R IESHA ROSALES [facility] [id number] [facility] 2023-05-06 09:00:00 2023-05-06 09:00:00 Outpatient R [facility] [id number] [facility] 2023-04-08 20:55:00 2023-04-08 23:35:00 Emergency X RUBA DUBOSE [facility] ERT [id number] [facility] 2023-04-08 20:55:00 2023-04-08 23:35:00 Emergency Osiris Wilkins Donnell [facility] [id number] 350.1.13.10 [id number] [id number] [facility] 2023-04-08 00:00:00 2023-04-08 00:00:00 Orders Only Doctor Unassigned, Ross [facility] [id number] 350.1.13.10 4.2.7.2.686 [id number] [facility] 2022-11-28 09:00:00 2022-11-28 09:15:00 Nurse Visit Nurse, Robles Cain Rgv Cprit ObAshely Esquivel [facility] [employer] [facility] MATERNAL & CHILD [facility] .840.114 350.1.13.10 4.2.7.2.686 [id number] [facility] 2022-11-28 09:00:00 2022-11-28 09:00:00 Outpatient R ASHELY OBANDO [facility] [id number] [facility] 2022-10-24 09:30:00 2022-10-24 10:21:55 [facility] [id number] 2022-10-24 09:30:00 2022-10-24 10:21:55 [facility] & CHILD [facility] .840.114 350.1.13.10 4.2.7.2.686 [id number] [facility] 2022-10-08 08:00:00 2022-10-08 08:33:08 [facility] [id number] [facility] 2022-10-08 08:00:00 2022-10-08 08:33:08 Routine Visit Iesha Rosales [facility] [employer] [facility] MATERNAL & CHILD [facility] [id number] 350.1.13.10 4.2.7.2.686 [id number] 107 [id number] [facility] 2022-10-03 10:00:00 2022-10-03 10:37:27 Outpatient R ASHELY OBANDO [facility] [id number] [facility] 2022-10-03 10:00:00 2022-10-03 10:37:27 Routine Visit Ashely Obando [facility] [employer] [facility] MATERNAL & CHILD [facility] [id number] 350.1.13.10 4.2.7.2.686 [id number] [facility] 2022-09-30 16:00:00 2022-09-30 16:22:54 Outpatient ASHELY UMANZOR [facility] [id number] [facility] 2022-09-30 16:00:00 2022-09-30 16:22:54 Routine Visit Ashely Obando [facility] [employer] [facility] & CHILD [facility] [id number] 350.1.13.10 4.2.7.2.686 [id number] 107 [id number] [facility] 2022-09-19 10:30:00 2022-09-19 10:48:05 Outpatient ASHELY UMANZOR [facility] [id number] [facility] 2022-09-19 10:30:00 2022-09-19 10:45:00 Nurse Visit Visit, Ang-Rmchp [facility] & CHILD [facility] [id number] 350.1.13.10 4.2.7.2.686 [id number] [facility] 2022-09-11 11:43:00 2022-09-14 17:10:00 Inpatient P NATHAN PERCY [facility] VIKA [id number] [facility] 2022-09-11 11:43:00 2022-09-14 17:10:00 Hospital Encounter Percy Nathan [facility] [id number] 350.1.13.10 4.2.7.2.686 [id number] [facility] 2022-09-12 10:10:00 2022-09-12 11:38:00 Surgery Alena Buckley [facility] [id number] 350.1.13.10 4.2.7.2.686 [id number] [facility] 2022-09-11 14:15:00 2022-09-11 14:15:00 Outpatient R ASHELY OBANDO [facility] [id number] [facility] 2022-09-11 08:00:00 2022-09-11 09:00:07 Outpatient R ASHELY OBANDO [facility] [id number] [facility] 2022-09-11 08:00:00 2022-09-11 09:00:07 Routine Visit Ashely Obando [facility] [employer] [facility] & CHILD [facility] [id number] 350.1.13.10 4.2.7.2.686 [id number] [facility] 2022-09-03 07:45:00 2022-09-03 08:03:36 Outpatient R ASHELY OBANDO [facility] [id number] [facility] 2022-09-03 07:45:00 2022-09-03 08:03:36 Routine Visit Ashely Obando [facility] [employer] [facility] HOSPITAL & CHILD [facility] 1.2.840.114 350.1.13.10 4.2.7.2.686 [id number] 107 [id number] [facility] 2022-08-27 08:30:00 2022-08-27 09:07:12 Outpatient R IESHA ROSALES [facility] [id number] [facility] 2022-08-27 08:30:00 2022-08-27 09:07:12 Routine Visit Iesha Rosales [facility] [employer] [facility] & CHILD [facility] 1..840.114 350.1.13.10 4.2.7.2.686 [id number] 107 [id number] [facility] 2022-08-20 08:45:00 2022-08-20 09:17:59 Outpatient R ASHELY OBANDO [facility] [id number] [facility] 2022-08-20 08:45:00 2022-08-20 09:17:59 Routine Visit Ashely Obando [facility] [employer] [facility] MATERNAL & CHILD [facility] 1.2.840.114 350.1.13.10 4.2.7.2.686 [id number] 107 [id number] [facility] 2022-08-13 15:15:00 2022-08-13 15:39:03 [facility] [id number] [facility] 2022-08-13 15:15:00 2022-08-13 15:39:03 Routine Visit Ashely Obando [facility] [employer] [facility] MATERNAL & CHILD [facility] 1.2.840.114 350.1.13.10 4.2.7.2.686 [id number] 107 [id number] [facility] 2022-07-30 14:15:00 2022-07-30 14:46:51 Outpatient R ASHELY OBANDO [facility] [id number] [facility] 2022-07-30 14:15:00 2022-07-30 14:46:51 Routine Visit Ashely Obando [facility] [employer] [facility] MATERNAL & CHILD [facility] 1.2.840.114 350.1.13.10 4.2.7.2.686 [id number] 107 [id number] [facility] 2022-07-24 09:15:00 2022-07-24 09:45:00 Climbing Guide Visit Ultrasound, Suly Drake [facility] [employer] [facility] MATERNAL & CHILD [facility] 1.2.840.114 350.1.13.10 4.2.7.2.686 [id number] [facility] 2022-07-24 09:15:00 2022-07-24 09:15:00 Outpatient SULY GUARDADO [facility] [id number] [facility] 2022-07-24 00:00:00 2022-07-24 00:00:00 Case Management Ashely Obando [facility] [employer] [facility] & CHILD [facility] 1.2.840.114 350.1.13.10 4.2.7.2.686 [id number] [facility] 2022-07-23 15:45:00 2022-07-23 16:12:01 Outpatient R ASHELY OBANDO [facility] [id number] [facility] 2022-07-23 15:45:00 2022-07-23 16:12:01 Routine Visit Ashely Obando [facility] [employer] [facility] & CHILD [facility] 1.2.840.114 350.1.13.10 4.2.7.2.686 [id number] 107 [id number] [facility] 2022-07-16 14:45:00 2022-07-16 15:17:02 Routine Visit Iesha Rosales [facility] [employer] [facility] & CHILD [facility] 1.2.840.114 350.1.13.10 4.2.7.2.686 [id number] [facility] 2022-07-16 14:45:00 2022-07-16 15:17:02 Outpatient R IESHA ROSALES [facility] [id number] [facility] 2022-07-04 00:00:00 2022-07-04 00:00:00 Telephone Iesha Rosales [facility] [employer] [facility] & CHILD [facility] 1.2.840.114 350.1.13.10 4.2.7.2.686 [id number] 107 [id number] [facility] 2022-07-02 14:00:00 2022-07-02 14:50:21 Outpatient R IESHA ROSALES [facility] [id number] [facility] 2022-07-02 14:00:00 2022-07-02 14:50:21 Routine Visit Iesha Rosales [facility] [employer] [facility] & CHILD [facility] 1.2840.114 350.1.13.10 4.2.7.2.686 [id number] 107 [id number] [facility] 2022-06-28 19:01:00 2022-06-28 21:44:00 Outpatient P GARZA-NICOLASA S, SONJA GARZA-NICOLASA S, SONJA [facility] [id number] [facility] 2022-06-28 19:01:00 2022-06-28 21:44:00 Emergency Garza-Nicolasa s, Sonja [facility] 1.840.114 350.1.13.10 4.2.7.2.686 [id number] [facility] 2022-06-28 00:00:00 2022-06-28 00:00:00 Orders Only Doctor Unassigned, Ross [facility] 1.840.114 350.1.13.10 4.2.7.2.686 [id number] [id number] [facility] 2022-06-19 00:00:00 2022-06-19 00:00:00 Telephone Iesha Rosales [facility] [employer] [facility] & CHILD [facility] 1.840.114 350.1.13.10 4.2.7.2.686 [id number] [facility] 2022-06-18 12:45:00 2022-06-18 13:40:08 Outpatient R IESHA ROSALES [facility] [id number] [facility] 2022-06-18 12:45:00 2022-06-18 13:40:08 Routine Visit Iesha Rosales [facility] [employer] [facility] & CHILD [facility] 1.840.114 350.1.13.10 4.2.7.2.686 [id number] 107 [id number] [facility] 2022-06-18 00:00:00 2022-06-18 00:00:00 Orders Only Doctor Unassigned, Ross [facility] 1.840.114 350.1.13.10 4.2.7.2.686 [id number] [facility] 2022-06-17 00:00:00 2022-06-17 00:00:00 Case Management Ashely Obando [facility] [employer] [facility] & CHILD [facility] 1.840.114 350.1.13.10 4.2.7.2.686 [id number] [facility] 2022-06-16 10:45:00 2022-06-16 11:30:00 Climbing Guide Visit Ultrasound, Lilli Latham [facility] D[employer] [facility] & CHILD [facility] 1.0.114 350.1.13.10 4.2.7.2.686 [id number] [facility] 2022-06-16 10:45:00 2022-06-16 10:45:00 Outpatient P LILLI MARTINEZ [facility] [id number] [facility] 2022-05-21 14:45:00 2022-05-21 14:45:00 Routine Visit Iesha Rosales [facility] .0.114 350.1.13.10 4.2.7.2.686 [id number] 107 [id number] [facility] 2022-05-21 14:45:00 2022-05-21 14:38:43 Outpatient R IESHA ROSALES [facility] [id number] [facility] 2022-05-17 00:00:00 2022-05-17 00:00:00 Case Management Ashely Obando [facility] D[employer]OX WORKER [facility] MATERNAL & CHILD [facility] 1.0.114 350.1.13.10 4.2.7.2.686 [id number] [facility] 2022-05-16 10:00:00 2022-05-16 11:15:00 Climbing Guide Visit 1, [facility] Room Lalit Muñoz [facility] D[employer] BOX WORKER [facility] MATERNAL & [facility] .114 350.1.13.10 4.2.7.2.686 [id number] [facility] 2022-05-16 10:00:00 2022-05-16 10:00:00 Outpatient P LALIT MUÑOZ [facility] [id number] [facility] 2022-05-09 14:30:00 2022-05-09 14:30:00 Outpatient P [facility] [id number] [facility] 2022-04-23 16:00:00 2022-04-23 16:23:48 Outpatient R IESHA ROSALES [facility] [id number] [facility] 2022-04-23 16:00:00 2022-04-23 16:23:48 Routine Visit Iesha Rosales [facility] D[employer] WORKER [facility] MATERNAL & CHILD [facility] 1.114 350.1.13.10 4.2.7.2.686 [id number] 107 [id number] [facility] 2022-04-22 08:00:00 2022-04-22 08:00:00 Outpatient R ASHELY OBANDO [facility] [id number] [facility] 2022-04-14 00:00:00 2022-04-14 00:00:00 Telephone Teri Felipe [facility] [place] ..114 350.1.13.10 4.2.7.2.686 [id number] [facility] 2022-04-10 00:00:00 2022-04-10 00:00:00 Orders Only Doctor Unassigned, Ross [facility] ..114 350.1.13.10 4.2.7.2.686 [id number] [id number] [facility] 2022-04-09 00:00:00 2022-04-09 00:00:00 Telephone Iesha Rosales [facility] D[employer]ER [facility] MATERNAL & CHILD [facility] 1.2840.114 350.1.13.10 4.2.7.2.686 [id number] [facility] 2022-04-07 20:16:00 2022-04-08 00:03:00 Emergency X JEN GASCA [facility] [id number] [facility] 2022-04-07 20:16:00 2022-04-08 00:03:00 Emergency Jen Gasca [facility] 1.840.114 350.1.13.10 4.2.7.2.686 [id number] [facility] 2022-04-07 00:00:00 2022-04-07 00:00:00 Telephone Provider, Johnny [facility] [employer] WORKER [facility] MATERNAL & CHILD [facility] 1.840.114 350.1.13.10 4.2.7.2.686 [id number] [facility] 2022-04-07 00:00:00 2022-04-07 00:00:00 Orders Only Doctor Unassigned, Ross [facility] 1.0.114 350.1.13.10 4.2.7.2.686 [id number] [id number] [facility] 2022-04-03 00:00:00 2022-04-03 00:00:00 Telephone Teri Felipe [facility] [place] 1.0.114 350.1.13.10 4.2.7.2.686 [id number] [facility] 2022-03-25 08:00:00 2022-03-25 09:04:09 Outpatient ASHELY UMANZOR [facility] [id number] [facility] 2022-03-25 08:00:00 2022-03-25 09:04:09 Routine Visit Provider, Ashely Hugo [facility] D[employer] WORKER [facility] MATERNAL & CHILD [facility] 1.0.114 350.1.13.10 4.2.7.2.686 [id number] 107 [id number] [facility] 2022-03-25 00:00:00 2022-03-25 00:00:00 Orders Only Doctor Unassigned, Ross [facility] 1..114 350.1.13.10 4.2.7.2.686 [id number] [id number] [facility] 2022-03-20 00:00:00 2022-03-20 00:00:00 Telephone Teri Felipe [facility] [place] 1..114 350.1.13.10 4.2.7.2.686 [id number] [facility] 2022-03-14 08:15:00 2022-03-14 09:58:43 Climbing Guide Visit Lab, Eddie Cordero [facility] D[employer]OX WORKER [facility] MATERNAL & CHILD [facility] 1..114 350.1.13.10 4.2.7.2.686 [id number] [facility] 2022-03-14 09:00:00 2022-03-14 09:39:53 Outpatient R EDDIE PERERA [facility] [id number] [facility] 2022-03-14 09:00:00 2022-03-14 09:39:53 Telemedici ne Visit Teri Felipe Joseph W [facility] D[employer]OX WORKER [facility] MATERNAL & CHILD [facility] 1..114 350.1.13.10 4.2.7.2.686 [id number] 107 [id number] [facility] 2022-03-14 00:00:00 2022-03-14 00:00:00 Orders Only Doctor Unassigned, Ross [facility] 1.840.114 350.1.13.10 4.2.7.2.686 [id number] [facility] 2022-02-25 08:45:00 2022-02-25 09:12:46 Outpatient R ASHELY OBANDO [facility] [id number] [facility] 2022-02-25 08:45:00 2022-02-25 09:12:46 Routine Visit Provider, Deysi Hill Brenda [facility] DUST BOX WORKER [facility] MATERNAL & CHILD [facility] 1..840.114 350.1.13.10 4.2.7.2.686 [id number] [facility] 2022-02-23 00:00:00 2022-02-23 00:00:00 Case Management Ashely Obando [facility] D[employer] WORKER [facility] MATERNAL & CHILD [facility] 1..840.114 350.1.13.10 4.2.7.2.686 [id number] [facility] 2022-02-21 09:00:00 2022-02-21 09:15:23 Climbing Guide [facility] D[employer]OX WORKER [facility] MATERNAL & CHILD [facility] ..840.114 350.1.13.10 4.2.7.2.686 [id number] [facility] 2022-02-21 09:00:00 2022-02-21 09:00:00 Outpatient P LILLI MARTINEZ [facility] [id number] [facility] 2022-02-11 00:00:00 2022-02-11 00:00:00 Telephone Provider, Johnny Cadet [facility] D[employer] WORKER [facility] MATERNAL & CHILD [facility] 1.2840.114 350.1.13.10 4.2.7.2.686 [id number] 107 [id number] [facility] 2022-01-28 10:00:00 2022-01-28 11:03:56 Outpatient R ASHELY OBANDO [facility] [id number] [facility] 2022-01-28 10:00:00 2022-01-28 11:03:56 Initial Visit Provider, WolfgangRmchp Ashely Krishnamurthy [facility] D[employer] BOX WORKER [facility] MATERNAL & CHILD [facility] 1.2840.114 350.1.13.10 4.2.7.2.686 [id number] [facility] 2022-01-28 00:00:00 2022-01-28 00:00:00 Orders Only Doctor Unassigned, Ross [facility] 1.2840.114 350.1.13.10 4.2.7.2.686 [id number] [facility] 2020-08-07 00:00:00 2020-08-07 00:00:00 Letter (Out) Xiomara Wilkins [facility] 1.2840.114 350.1.13.10 4.2.7.2.686 [id number] [facility] 2020-08-06 17:02:00 2020-08-06 19:58:00 Emergency Jorge Reyez [facility] 1.2840.114 350.1.13.10 4.2.7.2.686 [id number] [facility] 2020-08-06 17:02:00 2020-08-06 19:58:00 Emergency JORGE AVILEZ [facility] ERT [id number] [facility] 2020-08-03 17:53:00 2020-08-03 19:29:00 Emergency Chitra Peters [facility] 1.2.840.114 350.1.13.10 4.2.7.2.686 [id number] [facility] 2020-08-03 17:53:00 2020-08-03 19:29:00 Emergency X CHITRA PETERS [facility] ERT [id number] [facility] 2020-06-05 00:00:00 2020-06-05 00:00:00 Patient Outreach Doyle Eric [facility] 1.20.114 350.1.13.10 4.2.7.2.686 [id number] [facility] 2020-05-14 07:48:18 2020-05-14 08:44:48 Office Visit Iesha Rosales [facility] D[employer]OX WORKER [facility] MATERNAL & CHILD [facility] 1.20.114 350.1.13.10 4.2.7.2.686 [id number] [facility] 2020-05-14 07:45:00 2020-05-14 07:45:00 Outpatient R IESHA ROSALES [facility] [id number] [facility] 2020-05-14 00:00:00 2020-05-14 00:00:00 Orders Only Doctor Unassigned, Ross [facility] 1.2840.114 350.1.13.10 4.2.7.2.686 [id number] [id number] [facility] 2018-11-05 09:04:31 2018-11-05 12:04:00 Emergency Juan Francisco Sanz [facility] 1.20.114 350.1.13.10 4.2.7.2.686 [id number] [facility] Results Test Description Test Time Test Comments Results Result Co mments Source [facility] [id number] 11:16:52* Test Item Value Reference Range Interpretation Comme nts WBC (test code = 6690-2) 12.37 See_Comment H [Automated message] The system which generated this result transmitted reference range: 4.30 - 11.10 10*3/?L. The reference range was not used to interpret this result as normal/abnormal. RBC (test code = 789-8) 3.38 See_Comment L [Automated message] The system which generated this result transmitted reference range: 3.93 - 5.25 10*6/?L. The reference range was not used to interpret this result as normal/abnormal. HGB (test code = 718-7) 9.3 g/dL 11.6-15.0 L HCT (test code = 4544-3) 29.7 % 35.7-45.2 L MCV (test code = 787-2) 87.9 fL 80.6-95.5 MCH (test code = 785-6) 27.5 pg 25.9-32.8 MCHC (test code = 786-4) 31.3 g/dL 31.6-35.1 L RDW-SD (test code = 04675-6) 51.9 fL 39.0-49.9 H RDW-CV (test code = 788-0) 16.1 % 12.0-15.5 H PLT (test code = 777-3) 165 See_Comment L [Automated message] The system which generated this result transmitted reference range: 166 - 358 10*3/?L. The reference range was not used to interpret this result as normal/abnormal. MPV (test code = 50792-6) 10.8 fL 9.5-12.9 NRBC/100 WBC (test code = 2008217056) 0.0 See_Comment [Automated message] The system which generated this result transmitted reference range: 0.0 - 10.0 /100 WBCs. The reference range was not used to interpret this result as normal/abnormal. NRBC x10^3 (test code = 9352955563) See_Comment [Automated message] The system which generated this result transmitted reference range: 10*3/?L. The reference range was not used to interpret this result as normal/abnormal. GRAN MAT (NEUT) % (test code = 770-8) 81.9 % IMM GRAN % (test code = 1446653657) 0.60 % LYMPH % (test code = 736-9) 12.0 % MONO % (test code = 5905-5) 4.1 % EOS % (test code = 713-8) 1.1 % BASO % (test code = 706-2) 0.3 % GRAN MAT x10^3(ANC) (test code = 8463682702) 10.13 10*3/uL 1.88-7.09 H IMM GRAN x10^3 (test code = 4687358490) 0.07 10*3/uL 0.00-0.06 H LYMPH x10^3 (test code = 731-0) 1.49 10*3/uL 1.32-3.29 MONO x10^3 (test code = 742-7) 0.51 10*3/uL 0.33-0.92 EOS x10^3 (test code = 711-2) 0.13 10*3/uL 0.03-0.39 BASO x10^3 (test code = 704-7) 0.04 10*3/uL 0.01-0.07 Lab Interpretation (test code = 06116-1) Abnormal [facility] ONLY - SYPHILIS IGG/[id number] 14:01:58* Test Item Value Reference Range Interpretation Comme nts Syphilis IgG/IgM (test code = 30353-7) Non-reactive Non-reactive BRETT (test code = BRETT) Non-reactive - No serologic evidence of T. pallidum infection. Cannot exclude incubating or early syphilis. Submit a second specimen in 2-4 weeks if syphilis is clinically suspected. Equivocal - Further testing to follow. Reactive - Further testing to follow. Lab Interpretation (test code = 54111-4) Normal [facility] ONLY - SYPHILIS IGG/[id number] 14:01:58* Test Item Value Reference Range Interpretation Comme nts Syphilis IgG/IgM (test code = 64953-1) Non-reactive Non-reactive BRETT (test code = BRETT) Non-reactive - No serologic evidence of T. pallidum infection. Cannot exclude incubating or early syphilis. Submit a second specimen in 2-4 weeks if syphilis is clinically suspected. Equivocal - Further testing to follow. Reactive - Further testing to follow. Lab Interpretation (test code = 51511-7) Normal [facility] (D) IMMUNE [id number] 10:25:19* Test Item Value Reference Range Interpretation Comme nts RHIG CANDIDATE? (test code = 5188) No- see comment Patient is not a candidate for RhIg- Patient is Rh Positive.Performed at [facility] Laboratory Services - [facility] Blood [address] Free: [phone] No. [id number] [facility] (D) IMMUNE [id number] 10:25:19* Test Item Value Reference Range Interpretation Comme [facility] RHIG CANDIDATE? (test code = 5188) No- see comment Patient is not a candidate for RhIg- Patient is Rh Positive.Performed at [facility] Laboratory Services - [facility] Blood [address] Free: [phone] No. [id number] [facility] Cord [id number] 07:44:11* Test Item Value Reference Range Interpretation Comme nts VENOUS BASE EXCESS, CORD (test code = 6628578207) -7.8 mEq/L VENOUS PH, CORD (test code = 5139634211) 7.24 7.25-7.45 L VENOUS PC02, CORD (test code = 2321409985) 47 See_Comment [Automated me ssage] The system which generated this result transmitted reference range: 27 - 49 mmHg. The reference range was not used to interpret this result as normal/abnormal. VENOUS PO2, CORD (test code = 1650679715) 28 See_Comment [Automated me ssage] The system which generated this result transmitted reference range: 17 - 41 mmHg. The reference range was not used to interpret this result as normal/abnormal. VENOUS BICARBONATE, CORD (test code = 5317171369) 20 See_Comment QUES [A utomated message] The system which generated this result transmitted reference range: 12 - 29 mEq/L. The reference range was not used to interpret this result as normal/abnormal. Lab Interpretation (test code = 84456-8) Abnormal [facility] Cord [id number] 07:44:11* Test Item Value Reference Range Interpretation Comme nts VENOUS BASE EXCESS, CORD (test code = 7171814274) -7.8 mEq/L VENOUS PH, CORD (test code = 0047554359) 7.24 7.25-7.45 L VENOUS PC02, CORD (test code = 2272568099) 47 See_Comment [Automated me ssage] The system which generated this result transmitted reference range: 27 - 49 mmHg. The reference range was not used to interpret this result as normal/abnormal. VENOUS PO2, CORD (test code = 1206085913) 28 See_Comment [Automated me ssage] The system which generated this result transmitted reference range: 17 - 41 mmHg. The reference range was not used to interpret this result as normal/abnormal. VENOUS BICARBONATE, CORD (test code = 7030025646) 20 See_Comment QUES [A utomated message] The system which generated this result transmitted reference range: 12 - 29 mEq/L. The reference range was not used to interpret this result as normal/abnormal. Lab Interpretation (test code = 87962-0) Abnormal [facility] B Surface [id number] 20:07:14 * Test Item Value Reference Range Interpretation Comme [facility] HBsAg Semi-Quantitative (rupinder t code = 5195-3) 0.06 Negative [facility] B Surface [id number] 20:07:14 * Test Item Value Reference Range Interpretation Comme nts HBsAg Semi-Quantitative (rupinder t code = 5195-3) 0.06 Negative [facility] [id number] 19:36:10* Test Item Value Reference Range Interpretation Comme [facility] URIC ACID (test code = 2324728248) 3.9 mg/dL 2.9-6.0 Lab Interpretation (test cod e = 61664-7) Normal [facility] Ntjdbtiwvu7322-13-53 19:36:10* Test Item Value Reference Range Interpretation Comme [facility] CREATININE (test code = 1985927902) 0.60 mg/dL 0.50-1.04 eGFR (test code = 2542486953) 113.1 mL/min/1.73m2 BRETT (test code = BRETT) Association of Glomerular Filtration Rate (GFR) and Staging of Kidney Disease* + + +- +| GFR (mL/min/1.73 m2) ?| With Kidney Damage ?| ?Without Kidney Damage+ ------+ ----+ ------+| ?>90 ?| ?Stage one ?| ? Normal ?+ -+ + -+| ?60-89 ?| ?Stage two ?| ? Decreased GFR ? + + +- +| ?30-59 ?| ?Stage three ?| ? Stage three ? + + +- +| ?15-29 ?| ?Stage four ? | ? Stage four ?+ -+ + -+| ?<15 (or dialysis) ? ?| ?Stage five ? | ? Stage five ?+ -+ + -+ *Each stage assumes the associated GFR level has been in effect for at least three months. ?Stages 1 to 5, with or without kidney disease, indicate chronic kidney disease. Notes: Determination of stages one and two (with eGFR >59mL/min/1.73 m2) requires estimation of kidney damage for at least three months as defined by structural or functional abnormalities of the kidney, manifested by either:Pathological abnormalities or Markers of kidney damage (including abnormalities in the composition of the blood or urine or abnormalities in imaging tests). [facility]2022-09-11 19:36:10* Test Item Value Reference Range Interpretation Comme [facility] AST(SGOT) (test code = 4791565024) 20 U/L 13-40 Lab Interpretation (test cod e = 45770-9) Normal [facility] (SGPT)2022-09-11 19:36:10* Test Item Value Reference Range Interpretation Comme [facility] ALTv (test code = 1742-6) 21 U/L 5-35 Lab Interpretation (test cod e = 36027-0) [facility] [id number] 19:36:10* Test Item Value Reference Range Interpretation Comme [facility] URIC ACID (test code = 7533230037) 3.9 mg/dL 2.9-6.0 Lab Interpretation (test cod e = 51457-9) [facility] Lnvxjnjzml7099-97-14 19:36:10* Test Item Value Reference Range Interpretation Comme [facility] CREATININE (test code = 9202665083) 0.60 mg/dL 0.50-1.04 eGFR (test code = 8932528584) 113.1 mL/min/1.73m2 BRETT (test code = BRETT) Association of Glomerular Filtration Rate (GFR) and Staging of Kidney Disease* + + +- +| GFR (mL/min/1.73 m2) ?| With Kidney Damage ?| ?Without Kidney Damage+ ------+ ----+ ------+| ?>90 ?| ?Stage one ?| ? Normal ?+ -+ + -+| ?60-89 ?| ?Stage two ?| ? Decreased GFR ? + + +- +| ?30-59 ?| ?Stage three ?| ? Stage three ? + + +- +| ?15-29 ?| ?Stage four ? | ? Stage four ?+ -+ + -+| ?<15 (or dialysis) ? ?| ?Stage five ? | ? Stage five ?+ -+ + -+ *Each stage assumes the associated GFR level has been in effect for at least three months. ?Stages 1 to 5, with or without kidney disease, indicate chronic kidney disease. Notes: Determination of stages one and two (with eGFR >59mL/min/1.73 m2) requires estimation of kidney damage for at least three months as defined by structural or functional abnormalities of the kidney, manifested by either:Pathological abnormalities or Markers of kidney damage (including abnormalities in the composition of the blood or urine or abnormalities in imaging tests). [facility]2022-09-11 19:36:10* Test Item Value Reference Range Interpretation Comme nts AST(SGOT) (test code = 1412670111) 20 U/L 13-40 Lab Interpretation (test cod e = 21786-3) Normal [facility] System[facility] Transferase (SGPT)2022-09-11 19:36:10* Test Item Value Reference Range Interpretation Comme nts ALTv (test code = 1742-6) 21 U/L 5-35 Lab Interpretation (test cod e = 92368-0) Normal [facility] [id number] 19:35:30* Test Item Value Reference Range Interpretation Comme nts LDH (test code = 4386551964) 237 U/L 120-246 Lab Interpretation (test cod e = 79699-6) Normal [facility] Ckpseitzdpsvd2491-09-25 19:35:30* Test Item Value Reference Range Interpretation Comme nts LDH (test code = 2986407928) 237 U/L 120-246 Lab Interpretation (test cod e = 28683-0) Normal [facility] with Utigeoyhgejg3124-58-47 19:03:03* Test Item Value Reference Range Interpretation Comme nts WBC (test code = 6690-2) 8.76 See_Comment [Automated messa ge] The system which generated this result transmitted reference range: 4.30 - 11.10 10*3/?L. The reference range was not used to interpret this result as normal/abnormal. RBC (test code = 789-8) 3.92 See_Comment L [Automated messa ge] The system which generated this result transmitted reference range: 3.93 - 5.25 10*6/?L. The reference range was not used to interpret this result as normal/abnormal. HGB (test code = 718-7) 10.7 g/dL 11.6-15.0 L HCT (test code = 4544-3) 33.7 % 35.7-45.2 L MCV (test code = 787-2) 86.0 fL 80.6-95.5 MCH (test code = 785-6) 27.3 pg 25.9-32.8 MCHC (test code = 786-4) 31.8 g/dL 31.6-35.1 RDW-SD (test code = 78375-3) 49.6 fL 39.0-49.9 RDW-CV (test code = 788-0) 15.8 % 12.0-15.5 H PLT (test code = 777-3) 177 See_Comment [Automated messa ge] The system which generated this result transmitted reference range: 166 - 358 10*3/?L. The reference range was not used to interpret this result as normal/abnormal. MPV (test code = 07406-8) 11.0 fL 9.5-12.9 NRBC/100 WBC (test code = 5410971361) 0.0 See_Comment [Automated me ssage] The system which generated this result transmitted reference range: 0.0 - 10.0 /100 WBCs. The reference range was not used to interpret this result as normal/abnormal. NRBC x10^3 (test code = 2056908451) See_Comment [Automated messa ge] The system which generated this result transmitted reference range: 10*3/?L. The reference range was not used to interpret this result as normal/abnormal. GRAN MAT (NEUT) % (test code = 770-8) 77.3 % IMM GRAN % (test code = 8143802239) 0.60 % LYMPH % (test code = 736-9) 15.2 % MONO % (test code = 5905-5) 4.9 % EOS % (test code = 713-8) 1.7 % BASO % (test code = 706-2) 0.3 % GRAN MAT x10^3(ANC) (test code = 3119326155) 6.77 10*3/uL 1.88-7.09 IMM GRAN x10^3 (test code = 6988794333) 0.05 10*3/uL 0.00-0.06 LYMPH x10^3 (test code = 731-0) 1.33 10*3/uL 1.32-3.29 MONO x10^3 (test code = 742-7) 0.43 10*3/uL 0.33-0.92 EOS x10^3 (test code = 711-2) 0.15 10*3/uL 0.03-0.39 BASO x10^3 (test code = 704-7) 0.03 10*3/uL 0.01-0.07 Lab Interpretation (test code = 05824-5) Abnormal [facility] with Jemyumgtolwz3150-56-77 19:03:03* Test Item Value Reference Range Interpretation Comme nts WBC (test code = 6690-2) 8.76 See_Comment [Automated messa ge] The system which generated this result transmitted reference range: 4.30 - 11.10 10*3/?L. The reference range was not used to interpret this result as normal/abnormal. RBC (test code = 789-8) 3.92 See_Comment L [Automated messa ge] The system which generated this result transmitted reference range: 3.93 - 5.25 10*6/?L. The reference range was not used to interpret this result as normal/abnormal. HGB (test code = 718-7) 10.7 g/dL 11.6-15.0 L HCT (test code = 4544-3) 33.7 % 35.7-45.2 L MCV (test code = 787-2) 86.0 fL 80.6-95.5 MCH (test code = 785-6) 27.3 pg 25.9-32.8 MCHC (test code = 786-4) 31.8 g/dL 31.6-35.1 RDW-SD (test code = 26659-4) 49.6 fL 39.0-49.9 RDW-CV (test code = 788-0) 15.8 % 12.0-15.5 H PLT (test code = 777-3) 177 See_Comment [Automated messa ge] The system which generated this result transmitted reference range: 166 - 358 10*3/?L. The reference range was not used to interpret this result as normal/abnormal. MPV (test code = 82173-6) 11.0 fL 9.5-12.9 NRBC/100 WBC (test code = 3537161682) 0.0 See_Comment [Automated me ssage] The system which generated this result transmitted reference range: 0.0 - 10.0 /100 WBCs. The reference range was not used to interpret this result as normal/abnormal. NRBC x10^3 (test code = 8252256639) See_Comment [Automated messa ge] The system which generated this result transmitted reference range: 10*3/?L. The reference range was not used to interpret this result as normal/abnormal. GRAN MAT (NEUT) % (test code = 770-8) 77.3 % IMM GRAN % (test code = 7704295819) 0.60 % LYMPH % (test code = 736-9) 15.2 % MONO % (test code = 5905-5) 4.9 % EOS % (test code = 713-8) 1.7 % BASO % (test code = 706-2) 0.3 % GRAN MAT x10^3(ANC) (test code = 5778737950) 6.77 10*3/uL 1.88-7.09 IMM GRAN x10^3 (test code = 5050939452) 0.05 10*3/uL 0.00-0.06 LYMPH x10^3 (test code = 731-0) 1.33 10*3/uL 1.32-3.29 MONO x10^3 (test code = 742-7) 0.43 10*3/uL 0.33-0.92 EOS x10^3 (test code = 711-2) 0.15 10*3/uL 0.03-0.39 BASO x10^3 (test code = 704-7) 0.03 10*3/uL 0.01-0.07 Lab Interpretation (test code = 02920-2) [facility]normal [facility] - ONCE [id number] 18:33:00 * Test Item Value Reference Range Interpretation Comme nts ABO & RH (test code = 20) O Positive IAT (test code = 1185) Negative [facility] - ONCE [id number] 18:33:00 * Test Item Value Reference Range Interpretation Comme nts ABO & RH (test code = 20) O Positive IAT (test code = 1185) Negative [facility] W SPECIFIC [id number] 13:04:00* Test Item Value Reference Range Interpretation Comme nts POCT U SP GRAV (test code = 3255) . 1.005-1.025 POCT PH U (test code = 3254) . 5-8 POCT U LEUK EST (test code = 3263) . Negative - Negative POCT U NIT (test code = 3262) . Negative - Negati ve POCT U PROT (test code = 3259) trace Negative - Negat tesfaye POCT U GLU (test code = 3256) nrgative Negative - Negati ve POCT U KETONE (test code = 3258) . Negative - Neg ative POCT U UROBILI (test code = 3260) . 0.2-1 POCT U BILI (test code = 3261) . Negative - Negat tesfaye POCT U BLD (test code = 3257) . Negative - Negati ve POCT U COLOR (test code = 3266) . POCT U APPEAR (test code = 3267) . [facility] URINALYSIS W SPECIFIC [id number] 12:54:00* Test Item Value Reference Range Interpretation Comme nts POCT U SP GRAV (test code = 3255) . 1.005-1.025 POCT PH U (test code = 3254) 6 mg/dl 5-8 POCT U LEUK EST (test code = 3263) negative Negative - Negative POCT U NIT (test code = 3262) negative Negative - Negati ve POCT U PROT (test code = 3259) trace Negative - Negat tesfaye POCT U GLU (test code = 3256) negative Negative - Negati ve POCT U KETONE (test code = 3258) negative Negative - Neg ative POCT U UROBILI (test code = 3260) . 0.2-1 POCT U BILI (test code = 3261) . Negative - Negat tesfaye POCT U BLD (test code = 3257) 250 Negative - Negati ve POCT U COLOR (test code = 3266) . POCT U APPEAR (test code = 3267) . [facility] URINALYSIS W SPECIFIC [id number] 13:38:00* Test Item Value Reference Range Interpretation Comme nts POCT U SP GRAV (test code = 3255) . 1.005-1.025 POCT PH U (test code = 3254) . 5-8 POCT U LEUK EST (test code = 3263) . Negative - N egative POCT U NIT (test code = 3262) Trace Negative - Negati ve POCT U PROT (test code = 3259) Neg Negative - Negat tesfaye POCT U GLU (test code = 3256) . Negative - Negati ve POCT U KETONE (test code = 3258) . Negative - Neg ative POCT U UROBILI (test code = 3260) . 0.2-1 POCT U BILI (test code = 3261) . Negative - Negat tesfaye POCT U BLD (test code = 3257) . Negative - Negati ve POCT U COLOR (test code = 3266) POCT U APPEAR (test code = 3267) [facility] URINALYSIS W SPECIFIC [id number] 13:46:00* Test Item Value Reference Range Interpretation Comme nts POCT U SP GRAV (test code = 3255) . 1.005-1.025 POCT PH U (test code = 3254) 6 mg/dl 5-8 POCT U LEUK EST (test code = 3263) Neg Negative - Negative POCT U NIT (test code = 3262) Neg Negative - Negati ve POCT U PROT (test code = 3259) 1+ Negative - Negat tesfaye POCT U GLU (test code = 3256) 1+ Negative - Negati ve POCT U KETONE (test code = 3258) None Negative - Neg ative POCT U UROBILI (test code = 3260) . 0.2-1 POCT U BILI (test code = 3261) . Negative - Negat tesfaye POCT U BLD (test code = 3257) Large Negative - Negati ve POCT U COLOR (test code = 3266) POCT U APPEAR (test code = 3267) [facility] URINALYSIS W SPECIFIC [id number] 20:10:00* Test Item Value Reference Range Interpretation Comme nts POCT U SP GRAV (test code = 3255) . 1.005-1.025 POCT PH U (test code = 3254) 6 mg/dl 5-8 POCT U LEUK EST (test code = 3263) 1+ Negative - Negative POCT U NIT (test code = 3262) Neg Negative - Negati ve POCT U PROT (test code = 3259) 1+ Negative - Negat tesfaye POCT U GLU (test code = 3256) Neg Negative - Negati ve POCT U KETONE (test code = 3258) None Negative - Neg ative POCT U UROBILI (test code = 3260) . 0.2-1 POCT U BILI (test code = 3261) . Negative - Negat tesfaye POCT U BLD (test code = 3257) Large Negative - Negati ve POCT U COLOR (test code = 3266) POCT U APPEAR (test code = 3267) [facility] URINALYSIS W SPECIFIC [id number] 19:05:00* Test Item Value Reference Range Interpretation Comme nts POCT U SP GRAV (test code = 3255) . 1.005-1.025 A POCT PH U (test code = 3254) 6 mg/dl 5-8 POCT U LEUK EST (test code = 3263) Trace Negative - Negative POCT U NIT (test code = 3262) Neg Negative - Negati ve POCT U PROT (test code = 3259) Trace Negative - Negat tesfaye POCT U GLU (test code = 3256) Neg Negative - Negati ve POCT U KETONE (test code = 3258) None Negative - Neg ative POCT U UROBILI (test code = 3260) . 0.2-1 POCT U BILI (test code = 3261) . Negative - Negat tesfaye POCT U BLD (test code = 3257) 50 Negative - Negati ve POCT U COLOR (test code = 3266) POCT U APPEAR (test code = 3267) Lab Interpretation (test cod e = 15888-9) Abnormal [facility] URINALYSIS W SPECIFIC [id number] 20:53:00* Test Item Value Reference Range Interpretation Comme nts POCT U SP GRAV (test code = 3255) .. 1.005-1.025 POCT PH U (test code = 3254) 7 mg/dl 5-8 POCT U LEUK EST (test code = 3263) Trace Negative - Negative POCT U NIT (test code = 3262) Neg Negative - Negati ve POCT U PROT (test code = 3259) 1+ Negative - Negat tesfaye POCT U GLU (test code = 3256) Neg Negative - Negati ve POCT U KETONE (test code = 3258) None Negative - Neg ative POCT U UROBILI (test code = 3260) . 0.2-1 POCT U BILI (test code = 3261) . Negative - Negat tesfaye POCT U BLD (test code = 3257) Large Negative - Negati ve POCT U COLOR (test code = 3266) . POCT U APPEAR (test code = 3267) . [facility] URINALYSIS W SPECIFIC [id number] 20:53:00* Test Item Value Reference Range Interpretation Comme nts POCT U SP GRAV (test code = 3255) .. 1.005-1.025 POCT PH U (test code = 3254) 7 mg/dl 5-8 POCT U LEUK EST (test code = 3263) Trace Negative - Negative POCT U NIT (test code = 3262) Neg Negative - Negati ve POCT U PROT (test code = 3259) 1+ Negative - Negat tesfaye POCT U GLU (test code = 3256) Neg Negative - Negati ve POCT U KETONE (test code = 3258) None Negative - Neg ative POCT U UROBILI (test code = 3260) . 0.2-1 POCT U BILI (test code = 3261) . Negative - Negat tesfaye POCT U BLD (test code = 3257) Large Negative - Negati ve POCT U COLOR (test code = 3266) . POCT U APPEAR (test code = 3267) . [facility] URINALYSIS W SPECIFIC [id number] 19:43:00* Test Item Value Reference Range Interpretation Comme nts POCT U SP GRAV (test code = 3255) . 1.005-1.025 POCT PH U (test code = 3254) . 5-8 POCT U LEUK EST (test code = 3263) . Negative - N egative POCT U NIT (test code = 3262) . Negative - Negati ve POCT U PROT (test code = 3259) trace Negative - Negat tesfaye POCT U GLU (test code = 3256) neg Negative - Negati ve POCT U KETONE (test code = 3258) . Negative - Neg ative POCT U UROBILI (test code = 3260) . 0.2-1 POCT U BILI (test code = 3261) . Negative - Negat tesfaye POCT U BLD (test code = 3257) . Negative - Negati ve POCT U COLOR (test code = 3266) . POCT U APPEAR (test code = 3267) . [facility] URINALYSIS W SPECIFIC [id number] 19:03:00* Test Item Value Reference Range Interpretation Comme nts POCT U SP GRAV (test code = 3255) . 1.005-1.025 POCT PH U (test code = 3254) 6 mg/dl 5-8 POCT U LEUK EST (test code = 3263) neg Negative - Negative POCT U NIT (test code = 3262) neg Negative - Negati ve POCT U PROT (test code = 3259) trace Negative - Negat tesfaye POCT U GLU (test code = 3256) neg Negative - Negati ve POCT U KETONE (test code = 3258) neg Negative - Neg ative POCT U UROBILI (test code = 3260) . 0.2-1 POCT U BILI (test code = 3261) . Negative - Negat tesfaye POCT U BLD (test code = 3257) 250 Negative - Negati ve POCT U COLOR (test code = 3266) POCT U APPEAR (test code = 3267) [facility] URINALYSIS W SPECIFIC [id number] 19:03:00* Test Item Value Reference Range Interpretation Comme nts POCT U SP GRAV (test code = 3255) . 1.005-1.025 POCT PH U (test code = 3254) 6 mg/dl 5-8 POCT U LEUK EST (test code = 3263) neg Negative - Negative POCT U NIT (test code = 3262) neg Negative - Negati ve POCT U PROT (test code = 3259) trace Negative - Negat tesfaye POCT U GLU (test code = 3256) neg Negative - Negati ve POCT U KETONE (test code = 3258) neg Negative - Neg ative POCT U UROBILI (test code = 3260) . 0.2-1 POCT U BILI (test code = 3261) . Negative - Negat tesfaye POCT U BLD (test code = 3257) 250 Negative - Negati ve POCT U COLOR (test code = 3266) POCT U APPEAR (test code = 3267) [facility] URINALYSIS W SPECIFIC [id number] 17:56:00* Test Item Value Reference Range Interpretation Comme nts POCT U SP GRAV (test code = 3255) . 1.005-1.025 POCT PH U (test code = 3254) . 5-8 POCT U LEUK EST (test code = 3263) . Negative - Negative POCT U NIT (test code = 3262) . Negative - Negati ve POCT U PROT (test code = 3259) trace Negative - Negat tesfaye POCT U GLU (test code = 3256) negative Negative - Negati ve POCT U KETONE (test code = 3258) . Negative - Neg ative POCT U UROBILI (test code = 3260) . 0.2-1 POCT U BILI (test code = 3261) . Negative - Negat tesfaye POCT U BLD (test code = 3257) . Negative - Negati ve POCT U COLOR (test code = 3266) . POCT U APPEAR (test code = 3267) . [facility] URINALYSIS W SPECIFIC [id number] 17:56:00* Test Item Value Reference Range Interpretation Comme nts POCT U SP GRAV (test code = 3255) . 1.005-1.025 POCT PH U (test code = 3254) . 5-8 POCT U LEUK EST (test code = 3263) . Negative - Negative POCT U NIT (test code = 3262) . Negative - Negati ve POCT U PROT (test code = 3259) trace Negative - Negat tesfaye POCT U GLU (test code = 3256) negative Negative - Negati ve POCT U KETONE (test code = 3258) . Negative - Neg ative POCT U UROBILI (test code = 3260) . 0.2-1 POCT U BILI (test code = 3261) . Negative - Negat tesfaye POCT U BLD (test code = 3257) . Negative - Negati ve POCT U COLOR (test code = 3266) . POCT U APPEAR (test code = 3267) . [facility] URINALYSIS W SPECIFIC [id number] 17:56:00* Test Item Value Reference Range Interpretation Comme nts POCT U SP GRAV (test code = 3255) . 1.005-1.025 POCT PH U (test code = 3254) . 5-8 POCT U LEUK EST (test code = 3263) . Negative - Negative POCT U NIT (test code = 3262) . Negative - Negati ve POCT U PROT (test code = 3259) trace Negative - Negat tesfaye POCT U GLU (test code = 3256) negative Negative - Negati ve POCT U KETONE (test code = 3258) . Negative - Neg ative POCT U UROBILI (test code = 3260) . 0.2-1 POCT U BILI (test code = 3261) . Negative - Negat tesfaye POCT U BLD (test code = 3257) . Negative - Negati ve POCT U COLOR (test code = 3266) . POCT U APPEAR (test code = 3267) . [facility] URINALYSIS W SPECIFIC [id number] 20:21:00* Test Item Value Reference Range Interpretation Comme nts POCT U SP GRAV (test code = 3255) . 1.005-1.025 POCT PH U (test code = 3254) . 5-8 POCT U LEUK EST (test code = 3263) . Negative - N egative POCT U NIT (test code = 3262) . Negative - Negati ve POCT U PROT (test code = 3259) Trace Negative - Negat tesfaye POCT U GLU (test code = 3256) Neg Negative - Negati ve POCT U KETONE (test code = 3258) . Negative - Neg ative POCT U UROBILI (test code = 3260) . 0.2-1 POCT U BILI (test code = 3261) . Negative - Negat tesfaye POCT U BLD (test code = 3257) . Negative - Negati ve POCT U COLOR (test code = 3266) . POCT U APPEAR (test code = 3267) [facility] URINALYSIS W SPECIFIC [id number] 20:21:00* Test Item Value Reference Range Interpretation Comme nts POCT U SP GRAV (test code = 3255) . 1.005-1.025 POCT PH U (test code = 3254) . 5-8 POCT U LEUK EST (test code = 3263) . Negative - N egative POCT U NIT (test code = 3262) . Negative - Negati ve POCT U PROT (test code = 3259) Trace Negative - Negat tesfaye POCT U GLU (test code = 3256) Neg Negative - Negati ve POCT U KETONE (test code = 3258) . Negative - Neg ative POCT U UROBILI (test code = 3260) . 0.2-1 POCT U BILI (test code = 3261) . Negative - Negat tesfaye POCT U BLD (test code = 3257) . Negative - Negati ve POCT U COLOR (test code = 3266) . POCT U APPEAR (test code = 3267) [facility] URINALYSIS W SPECIFIC [id number] 22:10:00* Test Item Value Reference Range Interpretation Comme nts POCT U SP GRAV (test code = 3255) . 1.005-1.025 POCT PH U (test code = 3254) . 5-8 POCT U LEUK EST (test code = 3263) . Negative - N egative POCT U NIT (test code = 3262) . Negative - Negati ve POCT U PROT (test code = 3259) 1+ Negative - Negat tesfaye POCT U GLU (test code = 3256) neg Negative - Negati ve POCT U KETONE (test code = 3258) . Negative - Neg ative POCT U UROBILI (test code = 3260) . 0.2-1 POCT U BILI (test code = 3261) . Negative - Negat tesfaye POCT U BLD (test code = 3257) . Negative - Negati ve POCT U COLOR (test code = 3266) . POCT U APPEAR (test code = 3267) . [facility] URINALYSIS W SPECIFIC [id number] 22:10:00* Test Item Value Reference Range Interpretation Comme nts POCT U SP GRAV (test code = 3255) . 1.005-1.025 POCT PH U (test code = 3254) . 5-8 POCT U LEUK EST (test code = 3263) . Negative - N egative POCT U NIT (test code = 3262) . Negative - Negati ve POCT U PROT (test code = 3259) . Negative - Negat tesfaye POCT U GLU (test code = 3256) . Negative - Negati ve POCT U KETONE (test code = 3258) . Negative - Neg ative POCT U UROBILI (test code = 3260) . 0.2-1 POCT U BILI (test code = 3261) . Negative - Negat tesfaye POCT U BLD (test code = 3257) . Negative - Negati ve POCT U COLOR (test code = 3266) . POCT U APPEAR (test code = 3267) . [facility] / [id number] 04:03:15* Test Item Value Reference Range Interpretation Comme nts PROTIME PATIENT (test code = 5964-2) See_Comment [Automated [employer] ge] The system which generated this result transmitted reference range: 12.0 - 14.7 Seconds. The reference range was not used to interpret this result as normal/abnormal. INR (test code = 6301-6) Normal INR <1.1; Warfarin Therapeutic range 2.0 to 3.0 or 2.5 to 3.5, depending upon the indications. Lab Interpretation (test code = 77080-9) Normal [facility] [id number] 03:40:34* Test Item Value Reference Range Interpretation Comments TROPONIN I (test code = 1464594082) 0.002 ng/mL See_Comment [Automated message] The system which generated this result transmitted reference range: <=0.034. The reference range was not used to interpret this result as normal/abnormal. BRETT (test code = BRETT) Reference (Normal) Range (defined by the 99th percentile reference limit): <= 0.034 ng/mL Note: Cardiac troponin begins to rise 3-4 hours after the onset of ischemia. Repeat in 4-6 hours if the sample was drawn within 3-4 hours of the onset of the symptom and found normal. Diagnosis of myocardial injury is made with acute changes in cTn concentrations with at least one serial sample above the 99th percentile upper reference limit (URL), taken together with the patient's clinical presentation. Biotin has been reported to cause a negative bias, interpret results relative to patient's use of biotin. Lab Interpretation (test code = 45672-4) Normal [facility] [id number] 03:37:32* Test Item Value Reference Range Interpretation Comme nts NT-proBNP (test code = 0827582886) 36 pg/mL See_Comment [Automated message] The system which generated this result transmitted reference range: <=125. The reference range was not used to interpret this result as normal/abnormal. BRETT (test code = BRETT) Biotin has been reported to cause a negative bias, interpret results relative to patient's use of biotin. Lab Interpretation (test code = 90851-7) Normal [facility]. METABOLIC PANEL ([id number])2022-04-08 03:28:53* Test Item Value Reference Range Interpretation Comme nts NA (test code = 3119098975) 135 mmol/L 135-145 K (test code = 3047512449) 3.9 mmol/L 3.5-5.0 CL (test code = 0052103815) 106 mmol/L 98-108 CO2 TOTAL (test code = 5152931757) 23 mmol/L 23-31 AGAP (test code = 7103026391) 2-16 BUN (test code = 2813089759) 7 mg/dL 7-23 GLUCOSE (test code = 1983944855) 92 mg/dL 70-110 CREATININE (test code = 1256606412) 0.49 mg/dL 0.50-1.04 L TOTAL BILI (test code = 2873519596) 0.4 mg/dL 0.1-1.1 CALCIUM (test code = 5884561835) 8.8 mg/dL 8.6-10.6 T PROTEIN (test code = 0995962064) 6.3 g/dL 6.3-8.2 ALBUMIN (test code = 9694947496) 3.3 g/dL 3.5-5.0 L ALK PHOS (test code = 9833424295) 62 U/L 34-122 ALTv (test code = 1742-6) 50 U/L 5-35 H AST(SGOT) (test code = 3431804990) 27 U/L 13-40 eGFR (test code = 6842476361) mL/min/1.73m2 BRETT (test code = BRETT) Association of Glomerular Filtration Rate (GFR) and Staging of Kidney Disease* + --+ --+ ------+| GFR (mL/min/1.73 m2) ?| With Kidney Damage ?| ?Without Kidney Damage+ --------+ --------+ +| ?>90 ?| ?Stage one ?| ? Normal ?+ ---+ ---+ -------+| ?60-89 ?| ?Stage two ?| ? Decreased GFR ? + --+ --+ ------+| ?30-59 ?| ?Stage three ?| ? Stage three ? + --+ --+ ------+| ?15-29 ?| ?Stage four ? | ? Stage four ?+ ---+ ---+ -------+| ?<15 (or dialysis) ? ?| ?Stage five ? | ? Stage five ?+ ---+ ---+ -------+ *Each stage assumes the associated GFR level has been in effect for at least three months. ?Stages 1 to 5, with or without kidney disease, indicate chronic kidney disease. Notes: Determination of stages one and two (with eGFR >59mL/min/1.73 m2) requires estimation of kidney damage for at least three months as defined by structural or functional abnormalities of the kidney, manifested by either:Pathological abnormalities or Markers of kidney damage (including abnormalities in the composition of the blood or urine or abnormalities in imaging tests). Lab Interpretation (test code = 09725-0) Abnormal [facility] [facility]23-[facility] 03:28:53* Test Item Value Reference Range Interpretation Comme nts LIPASE (test code = 1240834554) 75 U/L 0-220 Lab Interpretation (test cod e = 02723-5) [facility] THRM[facility]AS [id number] 03:25:31* Test Item Value Reference Range Interpretation Comme nts APTT Patient (test code = 3173-2) See_Comment [Automated message] The system which generated this result transmitted reference range: 23 - 38 Seconds. The reference range was not used to interpret this result as normal/abnormal. BRETT (test code = BRETT) The [facility] patient population mean normal value for aPTT is 30 seconds. Lab Interpretation (test code = 48327-3) Normal [facility] [id number] 03:15:28* Test Item Value Reference Range Interpretation Comme nts WBC (test code = 6690-2) See_Comment [Automated messa ge] The system which generated this result transmitted reference range: 4.30 - 11.10 10*3/?L. The reference range was not used to interpret this result as normal/abnormal. RBC (test code = 789-8) See_Comment [Automated messa ge] The system which generated this result transmitted reference range: 3.93 - 5.25 10*6/?L. The reference range was not used to interpret this result as normal/abnormal. HGB (test code = 718-7) 10.9 g/dL 11.6-15.0 L HCT (test code = 4544-3) 34.0 % 35.7-45.2 L MCV (test code = 787-2) 86.5 fL 80.6-95.5 MCH (test code = 785-6) 27.7 pg 25.9-32.8 MCHC (test code = 786-4) 32.1 g/dL 31.6-35.1 RDW-SD (test code = 00550-4) 42.5 fL 39.0-49.9 RDW-CV (test code = 788-0) 13.6 % 12.0-15.5 PLT (test code = 777-3) See_Comment [Automated Quandoraa ge] The system which generated this result transmitted reference range: 166 - 358 10*3/?L. The reference range was not used to interpret this result as normal/abnormal. MPV (test code = 08493-6) 10.5 fL 9.5-12.9 NRBC/100 WBC (test code = 1558450460) See_Comment [Automated Savelli ssage] The system which generated this result transmitted reference range: 0.0 - 10.0 /100 WBCs. The reference range was not used to interpret this result as normal/abnormal. NRBC x10^3 (test code = 7737488012) See_Comment [Automated Quandoraa ge] The system which generated this result transmitted reference range: 10*3/?L. The reference range was not used to interpret this result as normal/abnormal. GRAN MAT (NEUT) % (test code = 770-8) 68.1 % IMM GRAN % (test code = 3420400246) 0.60 % LYMPH % (test code = 736-9) 21.3 % MONO % (test code = 5905-5) 5.6 % EOS % (test code = 713-8) 4.0 % BASO % (test code = 706-2) 0.4 % GRAN MAT x10^3(ANC) (test code = 2994141154) 6.89 10*3/uL 1.88-7.09 IMM GRAN x10^3 (test code = 2833224834) 0.06 10*3/uL 0.00-0.06 LYMPH x10^3 (test code = 731-0) 2.16 10*3/uL 1.32-3.29 MONO x10^3 (test code = 742-7) 0.57 10*3/uL 0.33-0.92 EOS x10^3 (test code = 711-2) 0.40 10*3/uL 0.03-0.39 H BASO x10^3 (test code = 704-7) 0.04 10*3/uL 0.01-0.07 Lab Interpretation (test code = 27660-6) Abnormal [facility] URINALYSIS W SPECIFIC [id number] 14:23:00* Test Item Value Reference Range Interpretation Comme nts POCT U SP GRAV (test code = 3255) . 1.005-1.025 POCT PH U (test code = 3254) . 5-8 POCT U LEUK EST (test code = 3263) . Negative - N egative POCT U NIT (test code = 3262) . Negative - Negati ve POCT U PROT (test code = 3259) 1+ Negative - Negat tesfaye POCT U GLU (test code = 3256) Neg Negative - Negati ve POCT U KETONE (test code = 3258) . Negative - Neg ative POCT U UROBILI (test code = 3260) . 0.2-1 POCT U BILI (test code = 3261) . Negative - Negat tesfaye POCT U BLD (test code = 3257) . Negative - Negati ve POCT U COLOR (test code = 3266) .. POCT U APPEAR (test code = 3267) [facility] URINALYSIS W SPECIFIC [id number] 14:23:00* Test Item Value Reference Range Interpretation Comme nts POCT U SP GRAV (test code = 3255) . 1.005-1.025 POCT PH U (test code = 3254) . 5-8 POCT U LEUK EST (test code = 3263) . Negative - N egative POCT U NIT (test code = 3262) . Negative - Negati ve POCT U PROT (test code = 3259) 1+ Negative - Negat tesfaye POCT U GLU (test code = 3256) Neg Negative - Negati ve POCT U KETONE (test code = 3258) . Negative - Neg ative POCT U UROBILI (test code = 3260) . 0.2-1 POCT U BILI (test code = 3261) . Negative - Negat tesfaye POCT U BLD (test code = 3257) . Negative - Negati ve POCT U COLOR (test code = 3266) .. POCT U APPEAR (test code = 3267) [facility] URINALYSIS W SPECIFIC [id number] 14:45:00* Test Item Value Reference Range Interpretation Comme nts POCT U SP GRAV (test code = 3255) . 1.005-1.025 POCT PH U (test code = 3254) . 5-8 POCT U LEUK EST (test code = 3263) . Negative - N egative POCT U NIT (test code = 3262) . Negative - Negati ve POCT U PROT (test code = 3259) trace Negative - Negat tesfaye POCT U GLU (test code = 3256) normal Negative - Negati ve POCT U KETONE (test code = 3258) . Negative - Neg ative POCT U UROBILI (test code = 3260) . 0.2-1 POCT U BILI (test code = 3261) . Negative - Negat tesfaye POCT U BLD (test code = 3257) . Negative - Negati ve POCT U COLOR (test code = 3266) . POCT U APPEAR (test code = 3267) . [facility] [id number] 16:05:00* Test Item Value Reference Range Interpretation Comme nts POCT PREG (test code = 1605) Positive On board controls acceptable with C Line (test code = 3574) Yes POCT PREG LOT # (test code = 3577) POCT PREG TEST DATE ( test code = 3576) [facility] URINALYSIS W/O SPECIFIC [id number] 16:04:00* Test Item Value Reference Range Interpretation Comme nts POCT PH U (test code = 3254) 5 mg/dl 5-8 POCT U LEUK EST (test code = 3263) 1+ Negative - Negative POCT U NIT (test code = 3262) negative Negative - Negati ve POCT U PROT (test code = 3259) trace Negative - Negat tesfaye POCT U GLU (test code = 3256) negative Negative - Negati ve POCT U KETONE (test code = 3258) negative Negative - Neg ative POCT U BLD (test code = 3257) large Negative - Negati ve [facility] System[facility]-[id number] 23:22:17* Test Item Value Reference Range Interpretation Comments D-DIMER (test code = 1838039285) <0.27 See_Comment [Automated message] The system which generated this result transmitted reference range: <0.41 ?g/mL (FEU). The reference range was not used to interpret this result as normal/abnormal. BRETT (test code = BRETT) This test may be used in conjunction with a clinical pretest probability (PTP) assessment model to exclude venous thromboembolism (VTE) in patients suspected of deep venous thrombosis (DVT) and pulmonary embolism (PE) A D-Dimer value less than 0.50 ?g/ml (FEU) has a negative predicative value of 96 to 100% (95% CI)and 97 to 100% (95% CI) as an aid in the diagnosis of deep vein thrombosis (DVT) and pulmonary embolism when there is low or moderate pretest probability of PE or DVT. D-Dimer values are expressed in initial fibrinogen equivalent units (FEU)" The assay results should be used with other information, including the clinical context, in forming a diagnosis. Lab Interpretation (test code = 20930-6) Normal [facility] System[facility] [id number] 22:53:03* Test Item Value Reference Range Interpretation Comme nts TROPONIN I (test code = 5346119662) <0.012 See_Comment [Automated message] The system which generated this result transmitted reference range: <=0.034 ng/mL. The reference range was not used to interpret this result as normal/abnormal. BRETT (test code = BRETT) Equal or Less than 0.034 ng/ml---Normal ?Note: Cardiac troponin begins to rise 3-4 hours after the onset of ischemia. Repeat in 4-6 hours if the sample was drawn within 3-4 hours of the onset of the symptom and found normal. Between 0.035 and 0.120 ng/mL--- Borderline. Questionable myocardial injury or necrosis ? ?Note: Serial measurement may be necessary to confirm or exclude the diagnosis of myocardial injury or necrosis; Clinical correlation (symptoms, EKGs, imaging studies, and others) required; Repeat in 4-6 hours if clinically indicated. ? Equal or Higher than 0.121 ng/mL---Abnormal. Myocardial Injury or Necrosis Likely ? Biotin has been reported to cause a negative bias, interpret results relative to patient's use of biotin. ? Lab Interpretation (test code = 56007-6) Normal [facility] System[facility]MINAL [id number] 22:50:00* Test Item Value Reference Range Interpretation Comme nts NT-proBNP (test code = 3588468571) 36 pg/mL See_Comment [Automated message] The system which generated this result transmitted reference range: <=125. The reference range was not used to interpret this result as normal/abnormal. BRETT (test code = BRETT) Biotin has been reported to cause a negative bias, interpret results relative to patient's use of biotin. Lab Interpretation (test code = 94435-2) Normal [facility] System[facility] METABOLIC PANEL (NA, K, CL, CO2, GLUCOSE, BUN, CREATININE, CA)2020-08-06 22:42:40* Test Item Value Reference Range Interpretation Comme nts NA (test code = 6552204398) 139 mmol/L 135-145 K (test code = 1783952905) 3.9 mmol/L 3.5-5.0 CL (test code = 0504025133) 106 mmol/L 98-108 CO2 TOTAL (test code = 8660667238) 24 mmol/L 23-31 AGAP (test code = 0041146853) 2-16 BUN (test code = 9122362442) 12 mg/dL 7-23 GLUCOSE (test code = 8400633567) 84 mg/dL 70-110 CREATININE (test code = 5367682821) 0.66 mg/dL 0.50-1.04 CALCIUM (test code = 0907229821) 8.8 mg/dL 8.6-10.6 eGFR (test code = 9680223232) mL/min/1.73m2 BRETT (test code = BRETT) Association of Glomerular Filtration Rate (GFR) and Staging of Kidney Disease* + + +- +| GFR (mL/min/1.73 m2) ?| With Kidney Damage ?| ?Without Kidney Damage+ ------+ ----+ ------+| ?>90 ?| ?Stage one ?| ? Normal ?+ -+ + -+| ?60-89 ?| ?Stage two ?| ? Decreased GFR ? + + +- +| ?30-59 ?| ?Stage three ?| ? Stage three ? + + +- +| ?15-29 ?| ?Stage four ? | ? Stage four ?+ -+ + -+| ?<15 (or dialysis) ? ?| ?Stage five ? | ? Stage five ?+ -+ + -+ *Each stage assumes the associated GFR level has been in effect for at least three months. ?Stages 1 to 5, with or without kidney disease, indicate chronic kidney disease. Notes: Determination of stages one and two (with eGFR >59mL/min/1.73 m2) requires estimation of kidney damage for at least three months as defined by structural or functional abnormalities of the kidney, manifested by either:Pathological abnormalities or Markers of kidney damage (including abnormalities in the composition of the blood or urine or abnormalities in imaging tests). [facility] [id number] 22:33:07* Test Item Value Reference Range Interpretation Comme nts APPEARANCE (test code = 4920509041) Clear Clear COLOR (test code = 6441089518) Yellow Yellow PH (test code = 7524975026) 4.8-8.0 SP GRAVITY (test code = 6931207644) 1.003-1.030 GLU U QUAL (test code = 7118512684) Normal Normal BLOOD (test code = 4575931955) 1+ Negative A KETONES (test code = 6595849865) Negative Negative PROTEIN (test code = 2887-8) Negative Negative UROBILIN (test code = 3066879606) 2.0 mg/dL Normal A BILIRUBIN (test code = 6391767241) Negative Negative NITRITE (test code = 2674229077) Negative Negative LEUK CRISTINO (test code = 0891541366) Negative Negative RBC/HPF (test code = 3514051016) See_Comment H [Automated Quandoraa ge] The system which generated this result transmitted reference range: 0 - 3 HPF. The reference range was not used to interpret this result as normal/abnormal. WBC/HPF (test code = 9596437253) See_Comment [Automated Quandoraa ge] The system which generated this result transmitted reference range: 0 - 5 HPF. The reference range was not used to interpret this result as normal/abnormal. BACTERIA (test code = 8713894018) Negative Negative MUCOUS (test code = 2086200851) Slight Negative LPF A SQ EPITH (test code = 8728711937) HPF Lab Interpretation (test code = 59694-3) Abnormal [facility] WITH [id number] 22:28:16* Test Item Value Reference Range Interpretation Comme nts WBC (test code = 6690-2) See_Comment [Automated Quandoraa ge] The system which generated this result transmitted reference range: 4.30 - 11.10 10*3/?L. The reference range was not used to interpret this result as normal/abnormal. RBC (test code = 789-8) See_Comment [Automated Quandoraa ge] The system which generated this result transmitted reference range: 3.93 - 5.25 10*6/?L. The reference range was not used to interpret this result as normal/abnormal. HGB (test code = 718-7) 13.9 g/dL 11.6-15.0 HCT (test code = 4544-3) 43.2 % 35.7-45.2 MCV (test code = 787-2) 87.1 fL 80.6-95.5 MCH (test code = 785-6) 28.0 pg 25.9-32.8 MCHC (test code = 786-4) 32.2 g/dL 31.6-35.1 RDW-SD (test code = 23653-7) 41.9 fL 39.0-49.9 RDW-CV (test code = 788-0) 13.2 % 12.0-15.5 PLT (test code = 777-3) See_Comment [Automated messa ge] The system which generated this result transmitted reference range: 166 - 358 10*3/?L. The reference range was not used to interpret this result as normal/abnormal. MPV (test code = 17924-0) 10.6 fL 9.5-12.9 NRBC/100 WBC (test code = 1632480804) See_Comment [Automated Savelli ssage] The system which generated this result transmitted reference range: 0.0 - 10.0 /100 WBCs. The reference range was not used to interpret this result as normal/abnormal. NRBC x10^3 (test code = 4175924664) <0.01 See_Comment [Automated messa ge] The system which generated this result transmitted reference range: 10*3/?L. The reference range was not used to interpret this result as normal/abnormal. GRAN MAT (NEUT) % (test code = 770-8) 46.2 % IMM GRAN % (test code = 5561412590) 0.40 % LYMPH % (test code = 736-9) 29.1 % MONO % (test code = 5905-5) 9.4 % EOS % (test code = 713-8) 14.0 % BASO % (test code = 706-2) 0.9 % GRAN MAT x10^3(ANC) (test code = 5008755920) 3.57 10*3/uL 1.88-7.09 IMM GRAN x10^3 (test code = 1547793789) 0.03 10*3/uL 0.00-0.06 LYMPH x10^3 (test code = 731-0) 2.25 10*3/uL 1.32-3.29 MONO x10^3 (test code = 742-7) 0.73 10*3/uL 0.33-0.92 EOS x10^3 (test code = 711-2) 1.08 10*3/uL 0.03-0.39 H BASO x10^3 (test code = 704-7) 0.07 10*3/uL 0.01-0.07 Lab Interpretation (test code = 64096-8) [facility]normal [facility] NOW RAPID TESTING)2020-08-03 23:38:50* Test Item Value Reference Range Interpretation Comme nts SARS-CoV-2 Rapid ID NOW (test code = 49479-2) Not Detected Not Detected BRETT (test code = BRETT) ID NOW COVID-19 As say is an isothermal nucleic acid amplification test intended for the qualitative detection of nucleic acid from SARS-CoV-2 viral RNA in nasopharyngeal (FERTILIZER MIXER) specimens. It is used under Emergency Use Authorization (EUA) by FDA. The limit of detection (LOD) of the assay is 125 Genome Equivalents/mL. A positive result is indicative of the presence of SARS-CoV-2 RNA. ?Clinical correlation with patient history and other diagnostic information is necessary to determine patient infection status. A negative (Not Detected) result does not preclude SARS-CoV-2 infection. In patients with clinical symptoms and other tests that are consistent with SARS-CoV-2 infection, negative results should be treated as presumptive negative and a new specimen should be tested with alternative PCR molecular test. Invalid: Please collect a new specimen for repeat patient testing if clinically indicated. Lab Interpretation (test code = 79068-1) Normal [facility] SystemPO[facility] [id number] 23:03:00* Test Item Value Reference Range Interpretation Comme nts POCT PREG (test code = 1605) negative On board controls acceptable with C Line (test code = 3574) present Lab Interpretation (test cod e = 60803-4) Normal [facility] SystemGC & CHLAMYDIA AMPLIFIED [id number] 20:20:00* Test Item Value Reference Range Interpretation Comme nts C. trachomatis Nucleic Acid (test code = 61271-8) Negative Negative N. gonorrhoeae Nucleic Acid (test code = 52700-9) Negative Negative BRETT (test code = BRETT) Reliable results a re dependent on adequate specimen collection. ? A positive result obtained from a patient after therapeutic treatment cannot be interpreted as indicating the presence of viable organisms. ?For patients on whom a false positive result may have adverse psychosocial impact, retesting is advised. Indeterminate: Unable to generate a valid test result on this specimen. ?Please submit a new specimen for repeat testing if clinically indicated. Chlamydia trachomatis/Neisseria gonorrhoeae nucleic acid amplification testing (NAAT) has not been validated for medico-legal specimens (sexual abuse in dolly-pubertal and pre-pubertal children, sexual assault, and legal cases). ?Culture for Chlamydia trachomatis and/or Neisseria gonorrhoeae from clinically appropriate sites is the method of choice in these cases. ? Results from this testing should be interpreted in conjunction with other laboratory and clinical data available to the clinician.For females in general, a urine specimen is a second-line option because it is considered less sensitive than a cervical swab for Chlamydia trachomatis and/or Neisseria gonorrhoeae NAAT. Lab Interpretation (test code = 43643-4) Normal [facility] System[facility] & CHLAMYDIA AMPLIFIED [id number] 20:20:00* Test Item Value Reference Range Interpretation Comme nts C. trachomatis Nucleic Acid (test code = 96319-2) Negative Negative N. gonorrhoeae Nucleic Acid (test code = 31514-9) Negative Negative BRETT (test code = BRETT) Reliable results a re dependent on adequate specimen collection. ? A positive result obtained from a patient after therapeutic treatment cannot be interpreted as indicating the presence of viable organisms. ?For patients on whom a false positive result may have adverse psychosocial impact, retesting is advised. Indeterminate: Unable to generate a valid test result on this specimen. ?Please submit a new specimen for repeat testing if clinically indicated. Chlamydia trachomatis/Neisseria gonorrhoeae nucleic acid amplification testing (NAAT) has not been validated for medico-legal specimens (sexual abuse in dolly-pubertal and pre-pubertal children, sexual assault, and legal cases). ?Culture for Chlamydia trachomatis and/or Neisseria gonorrhoeae from clinically appropriate sites is the method of choice in these cases. ? Results from this testing should be interpreted in conjunction with other laboratory and clinical data available to the clinician.For females in general, a urine specimen is a second-line option because it is considered less sensitive than a cervical swab for Chlamydia trachomatis and/or Neisseria gonorrhoeae NAAT. Lab Interpretation (test code = 90668-0) Normal [facility] SystemTHYROID STIMULATING [id number] 07:25:00 * Test Item Value Reference Range Interpretation Comme nts TSH (test code = 8065309824) See_Comment Biotin has been reported to cause a negative bias, interpret results relative to patient's use of biotin. [Automated message] The system which generated this result transmitted reference range: 0.45 - 4.70 mIU/L. The reference range was not used to interpret this result as normal/abnormal. Lab Interpretation (test code = 00025-1) Normal [facility] SystemTHYROID STIMULATING [id number] 07:25:00 * Test Item Value Reference Range Interpretation Comme nts TSH (test code = 1900503302) See_Comment Biotin has been reported to cause a negative bias, interpret results relative to patient's use of biotin. [Automated message] The system which generated this result transmitted reference range: 0.45 - 4.70 mIU/L. The reference range was not used to interpret this result as normal/abnormal. Lab Interpretation (test code = 79778-4) Normal [facility] SystemaPTT2019-08-23 16:10:00* Test Item Value Reference Range Interpretation Comme nts APTT Patient (test code = 3173-2) See_Comment [Automated message] The system which generated this result transmitted reference range: 23 - 38 Seconds. The reference range was not used to interpret this result as normal/abnormal. BRETT (test code = BRETT) The [facility] patient population mean normal value for aPTT is 30 seconds. Lab Interpretation (test code = 05474-9) Normal [facility] SystemPROTHROMBIN TIME / [id number] 16:07:00* Test Item Value Reference Range Interpretation Comme nts PROTIME PATIENT (test code = 5964-2) See_Comment [Automated messa ge] The system which generated this result transmitted reference range: 12.0 - 14.7 Seconds. The reference range was not used to interpret this result as normal/abnormal. INR (test code = 6301-6) Normal INR <1.1; Warfarin Therapeutic range 2.0 to 3.0 or 2.5 to 3.5, depending upon the indications. Lab Interpretation (test code = 39592-4) Normal [facility] SystemTROPONIN [id number] 15:49:00* Test Item Value Reference Range Interpretation Comme nts TROPONIN I (test code = 6776251013) <0.012 See_Comment [Automated message] The system which generated this result transmitted reference range: <=0.034 ng/mL. The reference range was not used to interpret this result as normal/abnormal. BRETT (test code = BRETT) Equal or Less than 0.034 ng/ml---Normal?Not e: Cardiac troponin begins to rise 3-4 hours after the onset of ischemia. Repeat in 4-6 hours if the sample was drawn within 3-4 hours of the onset of the symptom and found normal. Between 0.035 and 0.120 ng/mL--- Borderline. Questionable myocardial injury or necrosis?Note: Serial measurement may be necessary to confirm or exclude the diagnosis of myocardial injury or necrosis; Clinical correlation (symptoms, EKGs, imaging studies, and others) required; Repeat in 4-6 hours if clinically indicated.? Equal or Higher than 0.121 ng/mL---Abnormal. Myocardial Injury or Necrosis Likely? Biotin has been reported to cause a negative bias, interpret results relative to patient's use of biotin.? ? Lab Interpretation (test code = 71252-0) Normal [facility]. METABOLIC PANEL (52602)2018-11-05 15:41:00* Test Item Value Reference Range Interpretation Comme nts NA (test code = 5352737775) 144 mmol/L 135-145 K (test code = 1008250023) 3.4 mmol/L 3.5-5 L CL (test code = 1950019180) 107 mmol/L 98-108 CO2 TOTAL (test code = 1370892825) 27 mmol/L 23-31 AGAP (test code = 1811264374) 2-16 BUN (test code = 8078874831) 9 mg/dL 7-23 GLUCOSE (test code = 7076701799) 90 mg/dL 70-110 CREATININE (test code = 0731694104) 0.59 mg/dL 0.5-1.04 TOTAL BILI (test code = 1321598900) 0.4 mg/dL 0.1-1.1 CALCIUM (test code = 9203626611) 8.4 mg/dL 8.6-10.6 L T PROTEIN (test code = 1029636889) 6.6 g/dL 6.3-8.2 ALBUMIN (test code = 3648099722) 3.7 g/dL 3.5-5 ALK PHOS (test code = 4681755012) 68 U/L 34-122 ALT(SGPT) (test code = 8566640688) 23 U/L 9-51 AST(SGOT) (test code = 9011776376) 18 U/L 13-40 eGFR Calculation (Non-) (test code = 9809123574) mL/min/1.73m2 eGFR Calculation () (test code = 6838683643) mL/min/1.73m2 BRETT (test code = BRETT) Association of Glomerular Filtration Rate (GFR) and Staging of Kidney Disease*+ + + +| GFR (mL/min/1.73 m2)?| With Kidney Damage?|?Without Kidney Damage+ --------+ --------+ +|?>90?|?S tage one?|? Normal?+ ---------+ ---------+ +|?60-89? |?Stage two?|? Decreased GFR? + --+ --+ ------+|?30-59?|?Stage three?|? Stage three? + --+ --+ ------+|?15-29?|?Stage four?? |? Stage four?+ -------+ -------+ +|?<15 (or dialysis)?|?Stage five? |? Stage five?+ -------+ -------+ +*Each stage assumes the associated GFR level has been in effect for at least three months.?Stages 1 to 5, with or without kidney disease, indicate chronic kidney disease.Notes: Determination of stages one and two (with eGFR >59mL/min/1.73 m2) requires estimation of kidney damage for at least three months as defined by structural or functional abnormalities of the kidney, manifested by either:Pathological abnormalities or Markers of kidney damage (including abnormalities in the composition of the blood or urine or abnormalities in imaging tests). Lab Interpretation (test code = 37604-1) Abnormal [facility] SystemLIPASE, [id number] 15:41:00* Test Item Value Reference Range Interpretation Comme nts LIPASE (test code = [id number]) 48 U/L 0-220 Lab Interpretation (test cod e = 95876-4) [facility] [id number] 15:23:00* Test Item Value Reference Range Interpretation Comme nts WBC (test code = 6690-2) See_Comment [Automated Retty] The system which generated this result transmitted reference range: 4.30 - 11.10 10*3/?L. The reference range was not used to interpret this result as normal/abnormal. RBC (test code = 789-8) See_Comment [Automated messa ge] The system which generated this result transmitted reference range: 3.93 - 5.25 10*6/?L. The reference range was not used to interpret this result as normal/abnormal. HGB (test code = 718-7) 11.8 g/dL 11.6-15 HCT (test code = 4544-3) 36.2 % 35.7-45.2 MCV (test code = 787-2) 86.6 fL 80.6-95.5 MCH (test code = 785-6) 28.2 pg 25.9-32.8 MCHC (test code = 786-4) 32.6 g/dL 31.6-35.1 RDW-SD (test code = 21123-8) 41.5 fL 39-49.9 RDW-CV (test code = 788-0) 13.2 % 12-15.5 PLT (test code = 777-3) See_Comment [Automated Quandoraa ge] The system which generated this result transmitted reference range: 166 - 358 10*3/?L. The reference range was not used to interpret this result as normal/abnormal. MPV (test code = 97401-3) 10.7 fL 9.5-12.9 NRBC/100 WBC (test code = 7103901003) See_Comment [Automated Savelli ssage] The system which generated this result transmitted reference range: 0.0 - 10.0 /100 WBCs. The reference range was not used to interpret this result as normal/abnormal. NRBC x10^3 (test code = 6872175281) <0.01 See_Comment [Automated messa ge] The system which generated this result transmitted reference range: 10*3/?L. The reference range was not used to interpret this result as normal/abnormal. GRAN MAT (NEUT) % (test code = 770-8) 56.7 % IMM GRAN % (test code = 1138315641) 0.30 % LYMPH % (test code = 736-9) 29.1 % MONO % (test code = 5905-5) 4.1 % EOS % (test code = 713-8) 9.0 % BASO % (test code = 706-2) 0.8 % GRAN MAT x10^3(ANC) (test code = 2341770954) 3.60 10*3/uL 1.88-7.09 IMM GRAN x10^3 (test code = 9790808614) <0.03 0-0.06 LYMPH x10^3 (test code = 731-0) 1.85 10*3/uL 1.32-3.29 MONO x10^3 (test code = 742-7) 0.26 10*3/uL 0.33-0.92 L EOS x10^3 (test code = 711-2) 0.57 10*3/uL 0.03-0.39 H BASO x10^3 (test code = 704-7) 0.05 10*3/uL 0.01-0.07 Lab Interpretation (test code = 34718-7) [facility]normal [facility] [id number] 15:06:53* * * * * * * * ORIGINAL REPORT * * * * * * * *CHEST PORTABLE ONE VIEW HISTORY:Chest pain TECHNIQUE: Frontal, portable projection of the chest is obtained. FINDINGS: The lungs are clear. The heart size and mediastinal silhouetteare normal. No pleural effusion or pneumothorax is seen. CONCLUSIONS: No acute cardiopulmonary disease. [facility], Radiant Results Inft User - 11/05/2018 10:08 AM CDT* * * * * * * * ORIGINAL REPORT * * * * * * * *CHEST PORTABLE ONE VIEWHISTORY:Chest painTECHNIQUE: Frontal, portable projection of the chest is obtained.FINDINGS: The lungs are clear. The heart size and mediastinal silhouetteare normal. No pleural effusion or pneumothorax is seen.CONCLUSIONS: No acute cardiopulmonary disease.[facility] Notes Date/Time Note Provider Source 2023-04-08 23:32:53 Dc instructions and prescription for Medrol Dose Pack reviewed with patient. She will fill prescription and take as directed. She will follow up with her PCP as directed. She will return to the ER if her symptoms persist or worsen. She was Dc'd ambulatory-warm, dry, pink, alert, in no distress. COMPOSITOR Brennon Alonso RN [facility] 2023-04-08 22:10:27 Medicated as ordered with Toradol 30 mg IV for c/o mid chest pain 07/23. COMPOSITOR [facility] 2023-04-08 21:00:24 Patient is here for shortness of breath since last night, described as hard to take a full breath and progressively got worse throughout day. Also causes her chest to hurt in various places described as "lung pain" whenever she takes a deep breath. Denies fever, or any URI s/s. Denies hx of blood clot or cardiac problems. No meds RESIDENTIAL CARE OFFICER. R Hanna RN [facility] 2023-04-08 20:52:00 EMERGENCY DEPARTMENT ENCOUNTER [facility] Patient Name: Marleni Chambers Date of : 1985 37 year old Exam [facility] Primary Care Physician: Ashely Obando [facility] Patient Escorted by: Self [9] Mode of Arrival: Personal means [1] EMS Treatment Prior to ED Arrival: RESIDENTIAL CARE OFFICER treatment: None ED Events Date/Time Event User Comments 04/08/232111 Medical Screening Begins RUBA DUBOSE MD -- 04/08/232111 First Provider Evaluation RUBA DUBOSE MD -- Chief Complaint Chief Complaint Patient presents with Shortness of Breath ED Triage Notes Lee Hanna RN 04/08/2023 21:01 Patient is here for shortness of breath since last night, described as hard to take a full breath and progressively got worse throughout day. Also causes her chest to hurt in various places described as "lung pain" whenever she takes a deep breath. Denies fever, or any URI s/s. Denies hx of blood clot or cardiac problems. No meds RESIDENTIAL CARE OFFICER. HPI History provided by: Patient Chest Pain Pain location: Substernal area Pain quality: aching Pain radiates to: Does not radiate Pain severity: Moderate Onset quality: Gradual Duration: 2 days Timing: Constant Chronicity: New Relieved by: Nothing Worsened by: Nothing Associated symptoms: shortness of breath Associated symptoms: no abdominal pain, no cough, no dizziness, no fatigue, no fever, no headache, no nausea, no palpitations and no vomiting Risk factors: no high cholesterol and no hypertension Past Medical History / Immunizations Past Medical History: Diagnosis Date Anemia Tetanus received in last 5 years: Unknown Childhood immunizations: Up-to-date Past Surgical History Past Surgical History: Procedure Laterality Date TUBAL LIGATION N/A 09/12/2022 Surgeon: Alena Buckley MD; Location: LABOR AND DELIVERY OR [facility] Allergies No Known Allergies Social History Tobacco Use Never smoked or used smokeless tobacco. Passive Exposure: Never Alcohol Use Not Currently. Comments: ocassional Drug Use No. Sexual Activity Not currently sexually active; Partners: Male; Control/Protection: None. Comments: last sexual intercourse 09/10/2022 Review of Systems Review of Systems Constitutional: Negative. Negative for chills, fatigue, fever and unexpected weight change. HENT: Negative. Eyes: Negative. Negative for discharge and itching. Respiratory: Positive for shortness of breath. Negative for cough, chest tightness and wheezing. Cardiovascular: Positive for chest pain. Negative for palpitations. Gastrointestinal: Negative. Negative for abdominal distention, abdominal pain, nausea and vomiting. Genitourinary: Negative. Negative for dysuria, urgency, frequency and flank pain. Musculoskeletal: Negative. Skin: Negative. Negative for color change, pallor and wound. Neurological: Negative. Negative for dizziness, syncope, light-headedness and headaches. Psychiatric/Behavioral: Negative. Negative for agitation and behavioral problems. All other systems reviewed and are negative. Endocrine: Endocrine negative Physical Exam ED Triage Vitals [04/08/23 2101] Weight 95.3 kg (210 lb) Actual or estimated Height BP (!) 138/98 Pulse 80 Resp 20 Temp 37 ?C (98.6 ?F) Temp source Oral SpO2 97 % Measured on Physical Exam Vitals reviewed. Constitutional: Appearance: She is well-developed. HENT: Head: Normocephalic and atraumatic. Nose: Nose normal. Eyes: Conjunctiva/sclera: Conjunctivae normal. Neck: Trachea: No tracheal deviation. Cardiovascular: Rate and Rhythm: Normal rate and regular rhythm. Heart sounds: Normal heart sounds. No murmur heard. No friction rub. Pulmonary: Effort: Pulmonary effort is normal. No respiratory distress. Breath sounds: Normal breath sounds. No stridor. No wheezing or rales. Abdominal: General: Bowel sounds are normal. There is no distension. Palpations: Abdomen is soft. Tenderness: There is no abdominal tenderness. There is no guarding or rebound. Musculoskeletal: General: Normal range of motion. Cervical back: Normal range of motion and neck supple. Skin: General: Skin is warm and dry. Neurological: Mental Status: She is alert and oriented to person, place, and time. Cranial Nerves: No cranial nerve deficit. Sensory: No sensory deficit. Psychiatric: Behavior: Behavior normal. Thought Content: Thought content normal. Judgment: Judgment normal. Labs Lab Results CBC WITH DIFF - Abnormal Result Value Ref Range WBC 7.87 4.30 - 11.10 10*3/?L RBC 4.30 3.93 - 5.25 10*6/?L HGB 12.0 11.6 - 15.0 g/dL HCT 36.8 35.7 - 45.2 % MCV 85.6 80.6 - 95.5 fL MCH 27.9 25.9 - 32.8 pg MCHC 32.6 31.6 - 35.1 g/dL RDW-SD 42.0 39.0 - 49.9 fL RDW-CV 13.4 12.0 - 15.5 % PLT 276 166 - 358 10*3/?L MPV 10.5 9.5 - 12.9 fL NRBC/100 WBC 0.0 0.0 - 10.0 /100 WBCs NRBC x10 3 <0.01 10*3/?L GRAN MAT (NEUT) % 57.3 % IMM GRAN % 0.40 % LYMPH % 27.7 % MONO % 5.7 % EOS % 8.5 % BASO % 0.4 % GRAN MAT x10 3 (ANC) 4.51 1.88 - 7.09 10*3/uL IMM GRAN x10 3 0.03 0.00 - 0.06 10*3/uL LYMPH x10 3 2.18 1.32 - 3.29 10*3/uL MONO x10 3 0.45 0.33 - 0.92 10*3/uL EOS x10 3 0.67 (*) 0.03 - 0.39 10*3/uL BASO x10 3 0.03 0.01 - 0.07 10*3/uL LIPASE - Normal LIPASE 86 0 - 220 U/L TROPONIN I - Normal TROPONIN I 0.003 <=0.034 ng/mL N-TERMINAL PRO-BNP - Normal NT-proBNP <20 <=125 pg/mL D-DIMER - Normal D-DIMER 0.28 <0.41 ?g/mL (FEU) COMP. METABOLIC PANEL (07721) NA 140 135 - 145 mmol/L K 3.6 3.5 - 5.0 mmol/L CL 107 98 - 108 mmol/L CO2 TOTAL 27 23 - 31 mmol/L AGAP 6 2 - 16 BUN 14 7 - 23 mg/dL GLUCOSE 94 70 - 110 mg/dL CREATININE 0.70 0.50 - 1.04 mg/dL TOTAL BILI 0.2 0.1 - 1.1 mg/dL CALCIUM 8.9 8.6 - 10.6 mg/dL T PROTEIN 7.0 6.3 - 8.2 g/dL ALBUMIN 3.9 3.5 - 5.0 g/dL ALK PHOS 97 34 - 122 U/L ALTv 16 5 - 35 U/L AST(SGOT) 21 13 - 40 U/L eGFR 114.4 mL/min/1.73m2 Imaging XR CHEST 1 VW Preliminary Result EXAM: XR CHEST 1 VW COMPARISON: Chest radiograph 04/07/2022 HISTORY: chest pain FINDINGS: Lungs: The lungs are adequately expanded. No focal opacities or pleural abnormality. Heart/Mediastinum: The cardiac silhouette appears normal accounting for technique and degree of inspiration. Bones and soft tissues: No osseous abnormality is visualized. IMPRESSION No radiographic evidence of acute cardiopulmonary process. Preliminary Report Dictated by Resident: Kacie Mcneal Orders and Treatments Orders Placed This Encounter Procedures XR CHEST 1 VW CBC WITH DIFF COMP. METABOLIC PANEL (89020) LIPASE TROPONIN I N-TERMINAL PRO-BNP D-Dimer Orders Placed This Encounter Medications ketorolac (TORADOL) injection 30 mg methylPREDNISolone 4 mg tablets Procedures EKG Time 2106 Normal sinus Bartlett normal Intervals normal Rate 65 No acute ischemia Notes & MDM Patient was evaluated for an emergency medical condition related to Shortness of Breath DDX Pleurisy Anxiety Costochondritis Diagnosis/Impression as of 04/08/23 2312 Chest pain, unspecified type Pleurisy Medical Decision Making Problems Addressed: Chest pain, unspecified type: acute illness or injury Pleurisy: acute illness or injury Amount and/or Complexity of Data Reviewed Labs: ordered. Decision-making details documented in ED Course. Radiology: ordered and independent interpretation performed. Decision-making details documented in ED Course. ECG/medicine tests: ordered and independent interpretation performed. Decision-making details documented in ED Course. Risk Prescription drug management. Assessment/Summary: The patient is a 37-year-old female who presents for pleuritic chest pain. The chest pain has been occurring for the past 24 hours. She denies a productive cough. She has no risk factors for ACS or PE. D-dimer was negative. Chest x-ray was negative troponin was negative. EKG does not demonstrate any ectopy or acute signs of ischemia. The patient's pain was improved with Toradol. The patient likely has pleurisy. [facility] She can return for any questions or concerns. History, physical exam findings, results of visit, differential diagnosis, medication regimens and plan of future care have been considered. Additional MDM may be found in the ED course. Differential diagnosis considered and final disposition made based on information gathered during evaluation and may not be completely ruled out or specifically listed. Vital signs were rechecked before final disposition. Diagnosis Final diagnoses: [R07.9] Chest pain, unspecified type (Primary) [R09.1] Pleurisy Disposition & Follow Up ED Disposition ED Disposition Disch - Home Condition Stable Comment -- Patient's Medications START taking these medications METHYLPREDNISOLONE 4 MG TABLETS Take by mouth SEE-INSTRUCTIONS. follow package directions CONTINUE taking these medications which have NOT CHANGED VITAMIN W/FA TABLET Take 1 tablet by mouth in the morning. START taking Modified Medications as Prescribed No medications on file STOP taking these medications No medications on file Future Appointments In 4 weeks Nurse, Robles Cain Rgv Cprit Obgyn [facility], JEANNINE Oneil Jr., MD Clinical Editorial Intern [facility] Emergency Department [employer] Dict[employer] is used frequently and may produce errors. Promptly contact for obvious discrepancies. Ruba Dubose MD 04/08/23 0593 [facility]
--- NOTE | 2023-10-21 20:56 | RAD REPORT ---
EXAM DESCRIPTION: RAD - Elbow Left 3 View - 10/21/2023 8:42 pm CLINICAL HISTORY: PAIN COMPARISON: No comparisons FINDINGS/IMPRESSION: No acute fracture. No malalignment. No significant focal degenerative changes.
--- NOTE | 2023-10-21 20:59 | EDPHYS ---
Physician Documentation [facility] Name: Marleni Chambers Age: 37 yrs Sex: Female : 1985 Arrival Date: 10/21/2023 Time: 19:03 Bed DX4 Private MD: ED Physician Lalit Sarmiento HPI: 10/20 22:57 This 37 yrs old Female presents to ER via Ambulatory with complaints of Elbow kb Injury. 22:57 Patient is a 37-year-old female who presents for left elbow pain that started 1 month kb ago. States she was carrying a table, went to toss it into the back of a truck and the legs of the table hit the truck bed causing a jolt up her left arm. States she has had pain to the elbow since then. Worse with movement.. Historical: - Allergies: 19:46 No Known Allergies; cm10 - Home Meds: 19:46 None [Active]; cm10 - PMHx: 19:46 None; cm10 - PSHx: 19:46 None; cm10 - Immunization history:: Adult Immunizations up to date. - Infectious Disease History:: Denies. - Social history:: Smoking status: Patient denies any tobacco usage or history of. ROS: 22:33 Constitutional: As per HPI kb Exam: 22:33 Constitutional: This is a well developed, well nourished patient who is awake, alert, kb and in no acute distress. Head/Face: Normocephalic, atraumatic. ENT: Moist Mucous membranes Cardiovascular: Regular rate Respiratory: Respirations even and unlabored. No increased work of breathing. Talking in full sentences Skin: Warm, dry with normal turgor. Normal color. Neuro: Awake and alert, GCS 15, oriented to person, place, time, and situation. Moves all extremities. Normal gait. 22:33 Musculoskeletal/extremity: Extremities: grossly normal except: noted in the left elbow: pain, swelling, tenderness, ROM: intact in all extremities, Circulation is intact in all extremities. Sensation intact. Vital Signs: 19:45 BP 131 / 81; Pulse 63; Resp 16; Temp 97.5(TE); Pulse Ox 100% on R/A; Weight 90.72 kg; cm10 Height 5 ft. 1 in. ; Pain 7/10; 19:45 Body Mass Index 37.79 (90.72 kg, 154.94 cm) cm10 19:45 Pain Scale: Adult cm10 MDM: 19:30 Patient medically screened. kb 22:34 Differential diagnosis: closed fracture, contusion, tendonitis. Data reviewed: vital kb signs, nurses notes. Counseling: I had a detailed discussion with the patient and/or guardian regarding the historical points, exam findings, and any diagnostic results supporting the discharge/admit diagnosis, radiology results, the need for outpatient follow up, a orthopedic surgeon, to return to the emergency department if symptoms worsen or persist or if there are any questions or concerns that arise at home. ED course: Pt educated on use of elbow brace and need for follow up for MRI if pain does not improve. 10/20 19:45 Order name: Elbow Left 3 View XRAY; Complete Time: 20:58 kb Administered Medications: 21:45 Drug: predniSONE PO 40 mg PO once Route: PO; jb4 21:51 Not Given (Other Intervention Used): [id number] mg IVP once kb 21:55 Drug: Ketorolac IM 15 mg IM once Route: IM; Site: left deltoid; jb4 Disposition Summary: 10/21/23 20:58 Discharge Ordered Notes: Location: Home kb Condition: Stable kb Diagnosis - Other sprain of left elbow kb Followup: kb - With: Emergency Department - When: As needed - Reason: Worsening of condition Followup: kb - With: Private Physician - When: 2 - 3 days - Reason: Recheck today's complaints, Continuance of care, Re-evaluation by your physician Discharge Instructions: - Discharge Summary Sheet kb - Tennis Elbow, [id number]-Dhao kb Forms: - Medication Reconciliation Form kb - Antibiotic Education kb - Prescription Opioid Use kb - Patient Portal Instructions kb - Leadership Thank You Letter kb - Work release form jb4 Prescriptions: - Prednisone 20 mg Oral Tablet - take 1 tablet ORAL route once daily for 5 days; 5 tablet; Refills: 0, Product kb Selection Permitted - Diclofenac Sodium 75 mg Oral tablet, delayed release (enteric coated) - take 1 tablet ORAL route 2 times per day As needed; 30 tablet; Refills: 0, kb Product Selection Permitted Signatures: Dispatcher [employer] EDSujey Kebede FNP-C FNP-Ren Gallegos RN RN jb4 Chris, Genevieve, RN RN cm10
--- NOTE | 2023-10-21 20:59 | ER ---
Nurse's Notes [facility] Name: Marleni Chambers Age: 37 yrs Sex: Female : 1985 Arrival Date: 10/21/2023 Time: 19:03 Bed DX4 Private MD: Diagnosis: Other sprain of left elbow Presentation: 10/20 19:45 Chief complaint: Patient states: Left elbow pain X1 month. Pt states that last month cm10 she injured her elbow and the pain has not gotten better. Coronavirus screen: Client denies travel out of the [place] in the last 14 days. At this time, the client does not indicate any symptoms associated with coronavirus-19. Ebola Screen: Patient denies travel to an Ebola-affected area in the 21 days before illness onset. No symptoms or risks identified at this time. Initial Sepsis Screen: Does the patient meet any 2 criteria? No. Patient's initial sepsis screen is negative. Does the patient have a suspected source of infection? No. Patient's initial sepsis screen is negative. Risk Assessment: Do you want to hurt yourself or someone else? Patient reports no desire to harm self or others. Onset of symptoms was October 21, 2023. 19:45 Method Of Arrival: Ambulatory cm10 19:45 Acuity: PRESTON 4 cm10 Triage Assessment: 19:46 General: Appears in no apparent distress. comfortable, Behavior is calm, cooperative. cm10 Neuro: No deficits noted. Level of Consciousness is awake, alert, obeys commands, Oriented to person, place, time, situation, Appropriate for age. Respiratory: No deficits noted. Airway is patent Respiratory effort is even, unlabored, Respiratory pattern is regular, symmetrical. Historical: - Allergies: 19:46 No Known Allergies; cm10 - Home Meds: 19:46 None [Active]; cm10 - PMHx: 19:46 None; cm10 - PSHx: 19:46 None; cm10 - Immunization history:: Adult Immunizations up to date. - Infectious Disease History:: Denies. - Social history:: Smoking status: Patient denies any tobacco usage or history of. Screenin:57 [facility] ED Fall Risk Assessment (Adult) History of falling in the last 3 months, jb4 including since admission No falls in past 3 months (0 pts) Confusion or Disorientation No (0 pts) Intoxicated or Sedated No (0 pts) Impaired Gait No (0 pts) Mobility Assist Device Used No (0 pt) Altered Elimination No (0 pt) Score/Fall Risk Level 0 - 2 = Low Risk Oriented to surroundings, Maintained a safe environment. Abuse screen: Denies threats or abuse. Nutritional screening: No deficits noted. Tuberculosis screening: No symptoms or risk factors identified. Assessment: 21:57 Reassessment: Patient appears in no apparent distress at this time. Patient and/or jb4 family updated on plan of care and expected duration. Pain level reassessed. Patient is alert, oriented x 3, equal unlabored respirations, skin warm/dry/pink. Vital Signs: 19:45 BP 131 / 81; Pulse 63; Resp 16; Temp 97.5(TE); Pulse Ox 100% on R/A; Weight 90.72 kg; cm10 Height 5 ft. 1 in. ; Pain 7/10; 19:45 Body Mass Index 37.79 (90.72 kg, 154.94 cm) cm10 19:45 Pain Scale: Adult cm10 ED Course: 19:06 Patient arrived in ED. mr 19:29 SouravSujey, [facility]. kb 19:29 Lalit Sarmiento MD is Attending Physician. kb 19:46 Triage completed. cm10 19:47 Arm band placed on Patient placed in an exam room, on a stretcher. cm10 20:43 Elbow Left 3 View XRAY In Process Unspecified. EDMS 21:57 Patient has correct armband on for positive identification. Bed in low position. Call jb4 light in reach. Side rails up X 1. Provided Education on: Discharge isntructions.. 21:57 No provider procedures requiring assistance completed. Patient did not have IV access jb4 during this emergency room visit. Administered Medications: 21:45 Drug: predniSONE PO 40 mg PO once Route: PO; jb4 21:51 Not Given (Other Intervention Used): [id number] mg IVP once kb 21:55 Drug: Ketorolac IM 15 mg IM once Route: IM; Site: left deltoid; jb4 Medication: 21:57 VIS not applicable for this client. jb4 Outcome: 20:58 Discharge ordered by . clarence 21:57 Discharged to home ambulatory, jb4 21:57 Condition: stable 21:57 Discharge instructions given to patient, Instructed on discharge instructions, follow up and referral plans. medication usage, Demonstrated understanding of instructions, follow-up care, medications, Prescriptions given X 2, 21:58 Patient left the ED. jb4 Signatures: Dispatcher [employer] EDMS Sujey Benjamin, ENGINEERING TEACHER-C ENGINEERING TEACHER-Kat Malagon, Reg Reg mr RodriRen, RN RN jb4 Genevieve Perez RN RN cm10
[2023-10-21] MEDS ORDERED: KETOROLAC 30 MG/ML INJ ONE (21:38)
[2023-10-21] MEDS ORDERED: predniSONE 20 MG TAB ONE (21:38)
[2023-10-21 22:14] VITALS: BP 131/81; TEMP 97.5; O2SAT 100
== END 2023-10-21 21:58 | disposition home or self-care (01) ==
LOC: ER 19:03
DX: S53.492A Other sprain of left elbow, initial encounter (principal)
CPT/HCPCS: J7512